=== PATIENT | female | born 1990 | race Caucasian/White ===

== ENCOUNTER 2016-08-19 13:54 | Observation (INO) ==
[2016-08-19] MEDS ORDERED: ONDANSETRON 4 MG/2 ML INJECTION IVP PRN (14:52)
[2016-08-19] MEDS ORDERED: DimenhyDRINATE 50 MG in LR 1,000 ML IV SCH ×2 (15:00→16:00)
[2016-08-19] MEDS ORDERED: D5LR 1,000 ML IV SCH (16:00)
--- NOTE | 2016-08-19 18:23 | OB/GYN Progress Note ---
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 The WU is resolved, and her neck is feeling much better. Good FM now. She's been able to keep down crackers. She voided. No diarrhea. - Objective Vital signs: Temp Pulse Resp BP Pulse Ox 96.6 F L 89 18 122/63 96 08/19/16 15:00 08/19/16 15:00 08/19/16 15:00 08/19/16 15:00 08/19/16 15:00 General: alert and oriented Laboratory Result: 08/19/16 15:28 08/19/16 15:28 - Assessment and Plan (1) 20 weeks gestation of Assessment and Plan: 20 (2) Hyperemesis affecting , antepartum Assessment and Plan: If she can keep down some food this evening, then we'll let her go home after the second bag of fluids is infused. (3) Heartburn during in second trimester Assessment and Plan: Add Pepcid.
[2016-08-19] MEDS ORDERED: FAMOTIDINE 40 MG/5 ML ORAL LIQUID PO SCH (18:30)
== END 2016-08-19 21:10 | disposition home or self-care (01) ==
LOC: MED
PROVIDERS: ADMIT Obstetrics & Gynecology; ATTEND Obstetrics & Gynecology

== ENCOUNTER 2016-12-25 10:18 | Inpatient (IN) ==
[2016-12-25] MEDS ORDERED: FAMOTIDINE PB 20 MG/50 ML BAG IV ONE (10:30)
[2016-12-25] MEDS ORDERED: CITRIC ACID/SODIUM CITRATE 30ml PO ONE (10:30)
--- OUTSIDE RECORDS SUMMARY | 2016-12-25 10:30 | External Medical Summary | Continuity of Care Document ---
:1990 Author Organization [facility] Address [address] [place], [place] [id number] Phone Care Team Providers Name Role Phone Aditya English PA-C Unavailable Unavailable Allergies, Adverse Reactions, Alerts Substance Reaction Severity Status No Known Drug Allergies Unknown Active Medications Medication Instructions Dosage Effective Dates Status Comments (start - stop) Vitamin take 1 tablet by Not Available - Active 27 mg-0.8 mg oral route every tablet day Tylenol 325 mg take 1 tablet by - Active tablet oral route every 4 hours as needed Problems Condition Effective Dates (start - stop) Clinical Status state, incidental - Less than 8 weeks gestation of - Previous Low Transverse - Encounter for suprvsn of normal - , second trimester 19 weeks gestation of - Mild hyperemesis gravidarum - 20 weeks gestation of - Previous Low Transverse - Maternal care for excess growth, - second tri, unsp 27 weeks gestation of - Previous Low Transverse - Obesity complicating , first - trimester 12 weeks gestation of - Previous Low Transverse - Maternal care for excess growth, - second tri, unsp Obesity complicating , second - trimester 19 weeks gestation of - Previous Low Transverse - Obesity complicating , second - trimester Encounter for suprvsn of normal - , second trimester 27 weeks gestation of - Previous Low Transverse - Smoking (tobacco) complicating - , first trimester Obesity complicating , first - trimester 10 weeks gestation of - Previous Low Transverse - Placenta previa specified as w/o - hemorrhage, first trimester Encounter for suprvsn of normal - , first trimester 12 weeks gestation of - Maternal care for excess growth, - second tri, unsp 17 weeks gestation of - Previous Low Transverse - Maternal care for excess growth, - second tri, unsp 24 weeks gestation of - Previous Low Transverse - 29 weeks gestation of - Previous Low Transverse - 31 weeks gestation of - Previous Low Transverse - Obesity complicating , third - trimester Encounter for suprvsn of normal - , third trimester 32 weeks gestation of - state, incidental - 8 weeks gestation of - Encounter for suprvsn of normal - , first trimester 8 weeks gestation of - Encntr screen for infections w sexl - mode of transmiss Placenta previa specified as w/o - hemor, second trimester 15 weeks gestation of - Abnormal glucose complicating - Maternal care for excess growth, - third trimester, unsp Decreased movements, third - trimester, unsp 33 weeks gestation of - Initiation of Oral Contraceptives - Active Procedures Procedure Date Unknown Results Test Name Date and Time Measure Units Reference Range Abnormal Flag Comments Unknown Advance Directives Directive Yes / No Effective Date File Name Unknown Encounters Encounter Practice Location Reason(s) Diagnoses Date Provider Care Team Description For Visit Members Cheng Cano Maternal care for Aug-2 Flowers Referring In Womens excess 9-201 [place]. Provider: Nita ANSARI, growth, third 7 700 [place] Flowers PO Box trimester, Medical , 700 1522, unspDecreased [place], movements, , [facility] Dr GUZMAN, third trimester, 120, Adarsh 120, [id number], unsp33 weeks Jerome Cano, gestation of [place], [place], tel: [phone]. , [place]. tel: tel: [phone] Cheng Cano Previous Low Aug-2 Flwoers Referring In Womens Transverse 1-201 [place]. Provider: Nita ANSARI, C-SectionObesity 7 700 [place] Flowers PO Box complicating Medical , 700 1522, , [facility] Beena, trimesterEncounte Dr, [facility] Dr GUZMAN, r for suprvsn of 120, Adarsh 120, [id number], normal , Jerome [facility] third [id number] THOMAS GUZMAN, tel: weeks gestation [phone]. of , [place]. tel: tel: [phone] Cheng Cano Aug-2 Flowers In Womens 1-201 [place]. Nita ANSARI, 7 700 PO Box Medical [address], [place] [address] [place], [facility] THOMAS, 120, [id number], [place], [place], tel: [phone] , [place]. tel: [phone] Cheng Cano Previous Low Aug-1 Flowers Referring In Womens Transverse 5-201 [place]. Provider: Nita ANSARI, [id number] weeks 7 700 [place] Flowers PO Box gestation of Medical K, 700 1522, [address], [facility] Dr GUZMAN, 120, Adarsh 120, [id number], Jerome [place]o, [place] GUZMAN, tel: [phone]. , [place]. tel: tel: [phone] [facility] Previous Low Aug-0 Flowers Referring In Womens Transverse - [place]. Provider: Nita ANSARI, [id number] weeks 7 700 [place] Flowers PO Box gestation of Medical K, 1522, [address], [facility] Dr GUZMAN, 120, Adarsh 120, , Jerome [place]o, [place] GUZMAN, tel:[phone]. , [place]. tel: tel: [phone] [facility] Abnormal glucose Sep-2 Flowers Referring In Womens complicating - Oriana. Provider: Nita ANSARI, 7 [place] Flowers PO Box Medical K, 152, [place] [address], [facility] Dr GUZMAN, 120, Adarsh 120, , Jerome [place]o, [place] GUZMAN, tel:[phone]. , [place]. tel: tel: [phone] [facility] Previous Low Sep-1 Flowers Referring In Womens Transverse - Oriana. Provider: Nita ANSARI, C-SectionObesity 7 [place] Flowers PO Box complicating Medical K, 152, , second [place], trimesterEncounte , [facility] Dr GUZMAN, r for suprvsn of 120, Adarsh 120, [id number], normal , Jerome Cano, second THOMAS GUZMAN, tel: [id number] weeks [phone]. gestation of , [place]. tel: tel: [phone] [facility] Previous Low Sep-1 Flowers Referring In Womens Ultrasound Transverse - Oriana. Provider: Nita ANSARI, C-SectionMaternal 7 700 [place] Flowers PO Box care for excess Medical K, 152, growth, [place], [facility] Dr adelso, [facility] Dr GUZMAN, unsp27 weeks 120, Adarsh 120, [id number], gestation of Jerome [place], [place] GUZMAN, tel:[phone]. , [place]. tel: tel: [phone] [facility] Previous Low Matthew-2 Flowers Referring In Womens Transverse 8-201 [place]. Provider: Nita ANSARI, C-SectionMaternal 7 700 [place] Flowers PO Box care for excess Medical K, 700 1522, growth, [place] [address], [facility] Dr GUZMAN, unsp24 weeks 120, Adarsh 120, [id number], gestation of Jerome [place], [place], [place], tel: [phone]. , [place]. tel: tel: [phone] [facility] Mild hyperemesis Matthew-0 Flowers Referring In Womens [id number] 6-201 Ori[place]. Provider: Nita ANSARI, weeks gestation 7 700 [place] Flowers PO Box of Medical K, 700 1522, [place] [address], [facility] Dr GUZMAN, 120, Adarsh 120, [id number], Jerome [place], [place] GUZMAN, tel: [phone]. , [place]. tel: tel: [phone] [facility] Previous Low May-3 Flowers Referring In Womens Transverse 1-201 [place]. Provider: Nita ANSARI, C-SectionEncounte 7 700 [place] Flowers PO Box r for suprvsn of Medical K, 700 1522, normal , [place] [address], [facility] Dr GUZMAN, [id number] weeks 120, Adarsh 120, [id number], gestation of Jerome [place], [place] THOMAS, TH[place], tel: [phone]. , [place]. tel: tel: [phone] [facility] Previous Low May-3 Flowers Referring In Womens Ultrasound Transverse 1-201 [place]. Provider: Nita ANSAIR, C-SectionMaternal 7 700 [place] Flowers PO Box care for excess Medical K, 700 1522, growth, [place] [address], [facility] Dr GUZMAN, unspObesity 120, Adarsh 120, [id number], complicating Jerome Cnao, , second THOMAS, THOMAS, tel: [id number] weeks [phone]. gestation of , [place]. tel: tel: [phone] [facility] Maternal care for May-1 Flowers Referring In Womens excess 6-201 [place]. Provider: Nita ANSARI, growth, second 7 700 Oriana Flowers PO Box tri, unsp17 weeks Medical , 700 1522, gestation of [facility], Dr, [facility] Dr GUZMAN, 120, Adarsh 120, [id number], Jerome [place], [place], [place], tel:[phone]. , [place]. tel: tel: [phone] [facility] Encntr screen for May-0 Flowers Referring In Womens infections w sexl 4-201 [place]. Provider: Nita ANSARI, mode of 7 700 [place] Flowers PO Box transmissPlacenta Medical , 700 1522, previa specified [facility], as w/o Dr miguel, [facility] Dr GUZMAN, second 120, Adarsh 120, [id number], [id number] weeks Jerome Cano, gestation of THOMAS TH[place], tel: [phone]. , [place]. tel: tel: [phone] [facility] Previous Low Apr-1 Flowers Referring In Womens Transverse 7-201 [place]. Provider: Nita ANSARI, C-SectionPlacenta 7 700 [place] Flowers PO Box previa specified [facility], 700 1522, as w/o [facility], hemorrhage, first , [facility] Dr GUZMAN, trimesterEncounte 120, Adarsh 120, , r for suprvsn of Jerome Cano, normal , THOMAS GUZMAN, tel: first [id number] [phone]. weeks gestation , [place]. tel: of tel: [phone] [facility] Previous Low Apr-1 Flowers Referring In Womens Ultrasound Transverse 7-201 Ori[place]. Provider: Nita ANSARI, C-SectionObesity 7 700 [place] Flowers PO Box complicating Medical , 700 1522, , first [facility] [place], [id number] weeks , [facility] Dr GUZMAN, gestation of 120, Adarsh 120, , Jerome [place], [place], TH[place], tel: [phone]. , [place]. tel: tel: [phone] Cheng Cano Previous Low Mar-2 Flowers Referring In Womens Transverse 9-201 [place]. Provider: Nita ANSARI, C-SectionSmoking 7 700 [place] Flowers PO Box (tobacco) Medical , 700 1522, complicating [facility] [place], , first , [facility] Dr GUZMAN, trimesterObesity 120, Adarsh 120, , complicating Jerome [place], [place] , first THOMAS GUZMAN, tel: [id number] weeks [phone]. gestation of , [place]. tel: tel: [phone] Cheng Cano Encounter for Mar-0 Flowers Referring In Womens suprvsn of normal 8-201 Ori[place]. Provider: Nita ANSARI, , first 7 700 Oriana Flowers PO Box trimester8 weeks Medical , 700 1522, gestation of [facility] [place], , [facility] Dr GUZMAN, 120, Adarsh 120, , Jerome [place], [place] GUZMAN, tel: [phone]. , [place]. tel: tel: [phone] Cheng Cano state, Mar-0 Flowers Referring In Womens Ultrasound incidental8 weeks 8-201 Ori[place]. Provider: Nita ANSARI, gestation of 7 700 Ori[place] Flowers PO Box Medical K, 700 1522, [place], , [facility] Dr GUZMAN, 120, Adarsh 120, , Jerome [place], [place]OM[place], THOM[place], tel: [phone]. , [place]. tel: tel: [phone] Cheng Cano state, May- Flowers Referring In Womens incidentalLess 1-201 [place]. Provider: Nita ANSARI, carlie 8 weeks 7 700 Ori[place] Flowers PO Box gestation of Medical K, 700 1522, Center Medical Dr Be[place], [facility] Dr GUZMAN, 120, Adarsh 120, [id number], [facility] [place], tel: [phone]. , [place]. tel: tel: [phone] Cheng Cano Flowers In Womens 6-201 Ori[place]. Health ELAN, 4 700 PO Box Medical 1522, [place] [address] [place], [facility] THOMAS, 120, [id number], [facility], tel: [phone] , . tel: [phone] Family History Family Member Diagnosis Age At Onset No family history of Lung Disease No family history of Uterine Cancer No family history of Kidney Problems No family history of Colon Cancer No family history of Diabetes No family history of Epilepsy No family history of Thrombosis Maternal grandmother Multiple sclerosis No family history of Hypertension No family history of Breast Cancer No family history of Stroke No family history of Osteoporosis No family history of Ovarian Cancer No family history of Thyroid Disorder Mother Congenital Cardiac Anomaly Immunizations Vaccine Date Status Comments Tdap completed Source: New Immunization Record Payers Payer name Insurance type Covered democrat ID Authorization(s) [facility] [id number] [employer] - Medicaid [place] [id number] [facility] [id number] [employer] [place] Medicaid [place] [id number] [facility] [id number] [employer] - Medicaid [place] [id number] Social History Type Description Quantity Date Captured Unknown Vital Signs Date / Height Weight BMI Pulse Blood Temperature Respiratory Body Head BMI Time: Rate Pressure Rate Surface Circumference percentile Area Unknown Chief Complaint And Reason For Visit Unknown Chief Complaint And Reason For Visit Reason For Referral Reason For Referral Unknown Plan Of Care Date Type Action Status Goal Tobacco cessation counseling completed Appointment Leni Nugent BOOKED Appointment Leni Nugent - [facility] - RC/S, PPTL BOOKED Future Order: Radiology Order Ultrasound OB Follow-up (83050) Ordered Future Order: Radiology Order Nuchal Translucency ([id number]) Ordered Future Order: Radiology Order Complete OB Ultrasound > 14 Ordered Weeks ([id number]) Future Order: Radiology Order Ultrasound < 14 wks ([id number]) Ordered Date Type Problem Goal Intervention Status Start Date Unknown. History Of Present Illness Encounter Date Complaint History Of Present Illness This patient has no known history of present illness Functional Status Encounter Date Functional Assessment Cognitive Assessment Unknown Medications Administered Medication Instructions Dosage Effective Dates (start - stop) Status Comments Drug Treatment Unknown Instructions Date Instruction Additional Information HIV and other routine tests risk factors identified by history anticipated course of care nutrition and weight gain counseling, special diet toxoplasmosis precautions (cats / raw meat) sexual activity exercise indications for ultrasound influenza vaccine environmental / work hazards travel childbirth classes / hospital facilities hospital registration genetic testing risks tobacco (ask, advise, assess, assist and arrange) alcohol illicit / recreational drugs use of any medications (including supplements, vitamins, herbs, OTC drugs) smoking counseling domestic violence seat belt use
--- OUTSIDE RECORDS SUMMARY | 2016-12-25 10:31 | External Medical Summary | Continuity of Care Document ---
:1990 Author Organization [facility] Address [address] [place], [place] [id number] Phone Care Team Providers Name Role Phone [...] Effective Dates (start - stop) Clinical Status Previous Low Transverse - Maternal care for excess growth, - third trimester, unsp 35 weeks gestation of - Less than 8 weeks gestation of - state, incidental - Previous Low Transverse - Encounter for suprvsn of normal - , second trimester 19 weeks gestation of - Mild hyperemesis gravidarum - 20 weeks gestation of - Oth related conditions, - third trimester Previous Low Transverse - 35 weeks gestation of - Previous Low Transverse - Maternal care for excess growth, - second tri, unsp 27 weeks gestation of - Previous Low Transverse - 12 weeks gestation of - Obesity complicating , first - trimester Previous Low Transverse - Maternal care for excess growth, - second tri, unsp 19 weeks gestation of - Obesity complicating , second - trimester Previous Low Transverse - Obesity complicating , second - trimester Encounter for suprvsn of normal - , second trimester 27 weeks gestation of - Previous Low Transverse - Obesity complicating , first - trimester 10 weeks gestation of - Smoking (tobacco) complicating - , first trimester Previous Low Transverse - 12 weeks gestation of - Placenta previa specified as w/o - hemorrhage, first trimester Encounter for suprvsn of normal - , first trimester Previous Low Transverse - Maternal care for excess growth, - second tri, unsp 24 weeks gestation of - Previous Low Transverse - 32 weeks gestation of - Encounter for suprvsn of normal - , third trimester Obesity complicating , third - trimester Previous Low Transverse - 31 weeks gestation of - Previous Low Transverse - Encounter for suprvsn of normal - , third trimester 37 weeks gestation of - Previous Low Transverse - 29 weeks gestation of - Previous Low Transverse - 36 weeks gestation of - Previous Low Transverse - Encounter for suprvsn of normal - , third trimester 38 weeks gestation of - Maternal care for excess growth, - second tri, unsp 17 weeks gestation of - Maternal care for excess growth, - third trimester, unsp Decreased movements, third - trimester, unsp 33 weeks gestation of - 8 weeks gestation of - state, incidental - 8 weeks gestation of - Encounter for suprvsn of normal - , first trimester Encntr screen for infections w sexl - mode of transmiss Placenta previa specified as w/o - hemor, second trimester 15 weeks gestation of - Abnormal glucose complicating - Initiation of Oral Contraceptives - Active Procedures Procedure Date Ultrasnd preg uterus, flwup/repeat Results Test Name Date and Time Measure Units Reference Range Abnormal Flag Comments Unknown Advance Directives Directive Yes / No Effective Date File Name Unknown Encounters Encounter Practice Location Reason(s) Diagnoses Date Provider Care Team Description For Visit Members Cheng Cano Previous Low Dec-0 Flowers Referring In Womens Transverse 5-201 Oriana. Provider: Nita ANSARI C-SectionEncounte 7 700 Oriana Flowers PO Box r for [facility] 1522, normal , [facility], third [id number] , [facility] Dr GUZMAN, weeks gestation 120, Adarsh 120, , of [facility], [facility], [place], tel: [phone]. , [place]. tel: tel: [phone] Cheng Cano Previous Low Sep- Flowers Referring In Womens Transverse 8-201 Oriana. Provider: Nita ANSARI C-SectionEncounte 7 700 Oriana Flowers PO Box r for suprvsn [facility], 700 1522, normal , [facility], third [id number] , [facility] Dr GUZMAN, weeks gestation 120, Adarsh 120, [id number], of [facility], [facility], [place], tel: [phone]. , [place]. tel: tel: [phone] Cheng Cano Previous Low Sep-2 Flowers Referring In Womens Transverse 1-201 Oriaan. Provider: Nita ANSARI, C-[id number] weeks 7 700 Oriana Flowers PO Box gestation of Medical K, 700 1522, [facility] [place], , [facility] Dr GUZMAN, 120, Adarsh 120, [id number], [place], [place], [place], tel: [phone]. , [place]. tel: tel: [phone] Cheng Cano [facility] Sep-1 Flowers Referring In Womens related 4-201 Oriana. Provider: Nita ANSARI, conditions, third 7 700 Oriana Flowers PO Box trimesterPrevious Medical K, 700 1522, [facility] C-[id number] weeks , [facility] Dr GUZMAN, gestation of 120, Adarsh 120, , [place], [place], [place], tel:[phone]. , [place]. tel: tel: [phone] Cheng Cano Previous Low Sep-1 Flowers Referring In Womens Ultrasound Transverse 4- Orinaa. Provider: Nita ANSARI, C-SectionMaternal 7 700 Oriana Flowers PO Box care for excess Medical K, 700 1522, growth, [place], third trimester, , [facility] Dr GUZMAN, unsp35 weeks 120, Adarsh 120, [id number], gestation of [place], [place], [place], tel: [phone]. , [place]. tel: tel: [phone] Cheng Cano Maternal care for Aug-2 Flowers Referring In Womens excess 9-201 Oriana. Provider: Nita ANSARI, growth, third 7 700 Oriana Flowers PO Box trimester, Medical K, 700 1522, unspDecreased Center [facility], movements, , [facility] Dr GUZMAN, third trimester, 120, Adarsh 120, [id number], unsp33 weeks [place], gestation of [place], [place], tel: [phone]. , [place]. tel: tel: [phone] [facility] [place] Previous Low Aug-2 Flowers Referring In Womens Transverse - Oriana. Provider: Nita ANSARI, C-Elwpfao56 weeks 7 700 Oriana Flowers PO Box gestation of Medical , 700 1522, pregnancyEncounte Center [facility], r for suprvsn of , [facility] Dr GUZMAN, normal , 120, Adarsh 120, , third [place], trimesterObesity [place]OMAS, [place]OMAS, tel:+ complicating [phone]. , third , [place]. tel: trimester tel: [phone] [facility] [place] Previous Low Aug-1 Flowers Referring In Womens Transverse 5- Oriana. Provider: Nita ANSARI, C-[id number] weeks 7 700 Oriana Flowers PO Box gestation of Medical , 700 1522, [facility] [place], [facility] Dr GUZMAN, 120, Adarsh 120, [id number], [place], [place], [place], tel: [phone]. , [place]. tel: tel: [phone] [facility] [place] Previous Low Aug-0 Flowers Referring In Womens Transverse - Oriana. Provider: Nita ANSARI, C-Yciajzx31 weeks 7 700 Oriana Flowers PO Box gestation of Medical , 700 1522, [facility] [place], [facility] Dr GUZMAN, 120, Adarsh 120, [id number], [place], [place], [place], tel: [phone]. , [place]. tel: tel: [phone] [facility] [place] Abnormal glucose Eitan-2 Flowers Referring In Womens complicating - Oriana. Provider: Nita ANSARI, 7 700 Oriana Flowers PO Box Medical , 700 1522, [facility], [facility] Dr GUZMAN, 120, Adarsh 120, [id number], [place], [place], [place], tel:[phone]. , [place]. tel: tel: [phone] [facility] [place] Previous Low Eitan-1 Flowers Referring In Womens Transverse 7-201 Oriana. Provider: Nita ANSARI, C-SectionObesity 7 700 Oriana Flowers PO Box complicating Medical K, 700 1522, , [facility] [place], trimesterEncounte , [facility] Dr GUZMAN, r for suprvsn of 120, Adarsh 120, [id number], normal , [place], [place] second [place] GUZMAN, tel: tipigysmk10 weeks [phone]. gestation of , [place]. tel: tel: [phone] [facility] [place] Previous Low Eitan-1 Flowers Referring In Womens Ultrasound Transverse 7-201 Oriana. Provider: Nita ANSARI, C-SectionMaternal 7 700 Oriana Flowers PO Box care for excess Medical K, 700 1522, growth, [place], [facility] Dr adelso, [facility] Dr GUZMAN, unsp27 weeks 120, Adarsh 120, [id number], gestation of [place], [place], [place], tel: [phone]. , [place]. tel: tel: [phone] [facility] [place] Previous Low Matthew-2 Flowers Referring In Womens Transverse 8-201 Oriana. Provider: Nita ANSARI, C-SectionMaternal 7 700 Oriana Flowers PO Box care for excess Medical K, 700 1522, growth, [place], [facility] Dr ad[place]so, [facility] Dr GUZMAN, unsp24 weeks 120, Adarsh 120, [id number], gestation of [place], [place], [place], tel: [phone]. , [place]. tel: tel: [phone] [facility] [place] Mild hyperemesis Matthew-0 Flowers Referring In Womens [id number] 6-201 Oriana. Provider: Nita ANSARI, weeks gestation 7 700 Oriana Flowers PO Box of Medical K, 700 1522, [place] [address], [facility] Dr GUZMAN, 120, Adarsh 120, [id number], [place], [place], [place], tel: [phone]. , [place]. tel: tel: [phone] [facility] [place] Previous Low May-3 Flowers Referring In Womens Transverse 1-201 Oriana. Provider: Nita ANSARI, C-SectionEncounte 7 700 Oriana Flowers PO Box r for suprvsn of Medical K, 700 1522, normal , [facility] , [facility] Dr GUZMAN, [id number] weeks 120, Adarsh 120, [id number], gestation of [place], [place], [place], tel: [phone]. , [place]. tel: tel: [phone] [facility] [place] Previous Low May-3 Flowers Referring In Womens Ultrasound Transverse 1-201 Oriana. Provider: Nita ANSARI, C-SectionMaternal 7 700 Oriana Flowers PO Box care for excess Medical K, 700 1522, growth, [facility], [facility] [place], , [facility] Dr GUZMAN, unsp19 weeks 120, Adarsh 120, [id number], gestation of [place], pregnancyObesity [place]OMAS, [place], tel: complicating [phone]. , second , [place]. tel: trimester tel: [phone] [facility] [place] Maternal care for July-1 Flowers Referring In Womens excess 6-201 Oriana. Provider: Nita ANSARI, growth, second 7 700 Oriana Flowers PO Box tri, unsp17 weeks Medical K, 700 1522, gestation of [facility], Dr, [facility] Dr GUZMAN, 120, Adarsh 120, [id number], [place], [place], [place], tel: [phone]. , [place]. tel: tel: [phone] [facility] [place] Encntr screen for May-0 Flowers Referring In Womens infections w sexl 4-201 Oriana. Provider: Ntia ANSARI, mode of 7 700 Oriana Flowers PO Box transmissPlacenta Medical , 700 1522, previa specified [facility], as w/o Dr miguel, [facility] Dr GUZMAN, second 120, Adarsh 120, [id number], [id number] weeks [place], gestation of [place], [place], tel: [phone]. , [place]. tel: tel: [phone] [facility] [place] Previous Low Apr-1 Flowers Referring In Womens Transverse 7-201 Oriana. Provider: Nita ANSARI, C-Rvwvjeo66 weeks 7 700 Oriana Flowers PO Box gestation of Medical , 700 1522, pregnancyPlacenta [facility], previa specified , [facility] Dr GUZMAN, as w/o 120, Adarsh 120, [id number], hemorrhage, first [place], [place] trimesterEncounte [place] GUZMAN, tel: r for suprvsn of [phone]. normal , , [place]. tel: first trimester tel: [phone] Cheng Cano Previous Low Apr-1 Flowers Referring In Womens Ultrasound Transverse 7-201 Oriana. Provider: Nita ANSARI, C-Oepkzwq20 weeks 7 700 Oriana Flowers PO Box gestation of Medical K, 700 1522, pregnancyObesity [facility], complicating , [facility] Dr GUZMAN, , first 120, Adarsh 120, , trimester [place], [place] GUZMAN, tel: [phone]. , [place]. tel: tel: [phone] Cheng Cano Previous Low Mar-2 Flowers Referring In Womens Transverse 9-201 Oriana. Provider: Nita ANSARI, C-SectionObesity 7 700 Oriana Flowers PO Box complicating Medical , 700 1522, , first [facility], [id number] weeks , [facility] Dr GUZMAN, gestation of 120, Adarsh 120, [id number], pregnancySmoking [place], [place] (tobacco) [place] GUZMAN, tel: complicating [phone]. , first , [place]. tel: trimester tel: [phone] Cheng Cano 8 weeks gestation Mar-0 Flowers Referring In Womens of 8- Oriana. Provider: Nita ANSARI pregnancyEncounte 7 700 Oriana Flowers PO Box r for [facility] Medical K, 700 1522, normal , [place], first trimester , [facility] [place], 120, Adarsh 120, [id number], [place], [place], [place], tel: [phone]. , [place]. tel: tel: [phone] Cheng Cano 8 weeks gestation Mar-0 Flowers Referring In Womens Ultrasound of 8- Oriana. Provider: Nita ANSARI, pregnancy 7 700 Oriana Flowers PO Box [facility], [facility] Medical K, 700 1522, [place] [address], [facility] [place], 120, Adarsh 120, [id number], [place], [place], [place], tel: [phone]. , [place]. tel: tel: [phone] Cheng Cano Less than 8 weeks Mar-0 Flowers Referring In Womens gestation of 1-201 Oriana. Provider: Nita ANSARI pregnancy 7 700 Oriana Flowers PO Box [facility], [facility] Medical K, 700 1522, [place] [address], [facility] Dr GUZMAN, 120, Adarsh 120, [id number], [place], [place], [place], tel: [phone]. , [place]. tel: tel: [phone] Cheng Cano Mar- Flowers In Womens 6-201 Oriana. Nita ANSARI, 4 700 [facility] 1522, [place] [address] [place], Adarsh GUZMAN, 120, [id number], [place], [place], tel: [phone] , [place]. tel: [phone] Family History Family Member Diagnosis Age At [...] Cardiac Anomaly Immunizations Vaccine Date Status Comments Influenza, injectable, completed Source: New Immunization Record quadrivalent, preservative free, 3 yrs or older Tdap completed Source: New Immunization Record Payers Payer name Insurance type Covered constitution party ID Authorization(s) [facility] [id number] [employer] [place] [employer] - Medicaid [place] [id number] [facility] [id number] [employer] [place] [employer] [place] Medicaid [place] [id number] [facility] [id number] [employer] [place] [employer] - Medicaid [place] [id number] [facility] [id number] [employer] - Medicaid [place] [id number] Social History Type Description Quantity Date Captured [...] Goal Tobacco cessation counseling completed Appointment Leni Nugent/S, PPTL BOOKED Future Order: Radiology Order Ultrasound OB Follow-up ([id number]) Ordered Future Order: Radiology Order Ultrasound OB Follow-up ([id number]) Ordered Future Order: Radiology Order Nuchal Translucency ([id number]) Ordered Future Order: Radiology Order Complete OB Ultrasound > 14 Ordered Weeks ([id number]) Future Order: Radiology Order Ultrasound < 14 wks ([id number]) Ordered Date Type Problem Goal Intervention Status Start Date Unknown. History Of Present Illness Encounter Date Complaint History Of Present Illness This patient has no known history of present illness Functional Status Encounter Date Functional Assessment Cognitive Assessment Unknown Medications Administered Medication Instructions Dosage Effective Dates (start - stop) Status Comments Drug Treatment Unknown Instructions Date Instruction Additional Information labor signs group B strep screening HIV and other routine tests risk factors [...]
--- OUTSIDE RECORDS SUMMARY | 2016-12-25 10:31 | External Medical Summary | Continuity of Care Document ---
:1990 Author Organization [facility] Address [address] [place], [place] [id number] Phone Care Team Providers Name Role Phone [...] tri, unsp 27 weeks gestation of - state, incidental - Less than 8 weeks [...] - Obesity complicating , first - trimester Smoking (tobacco) complicating - , first trimester 10 weeks gestation of - Previous Low Transverse - Placenta previa specified as w/o - hemorrhage, first trimester 12 weeks gestation of - Encounter for suprvsn of normal - , first trimester Previous Low Transverse - Maternal care for excess growth, - second tri, unsp 24 weeks gestation of - Previous Low Transverse - 29 weeks gestation of - Maternal care for excess growth, - second tri, unsp 17 weeks gestation of - Placenta previa specified as w/o - hemor, second trimester Encntr screen for infections w sexl - mode of transmiss 15 weeks gestation of - 8 weeks gestation of - state, incidental - 8 weeks gestation of - Encounter for suprvsn of normal - , first trimester Abnormal glucose complicating - Initiation of Oral Contraceptives - Active Procedures Procedure Date Ultrasnd preg uterus, flwup/repeat Results Test Name Date and Time Measure Units Reference Range Abnormal Flag Comments Unknown Advance Directives Directive Yes / No Effective Date File Name Unknown Encounters Encounter Practice Location Reason(s) Diagnoses Date Provider Care Team Description For Visit Members [facility] Previous Low Flowers Referring In Womens Transverse 1-201 Oriana. Provider: Health PA, [id number]-[id number] weeks 7 700 Oriana Flowers PO Box gestation of Medical K, 700 1522, [address], [facility] [address] [place], 120, [place] 120, [id number], [place], [place], [place], tel: [phone]. , [place]. tel: tel: [phone] [facility] Abnormal glucose Eitan-2 Flowers Referring In Womens complicating 1-201 Oriana. Provider: Nita ANSARI, 7 700 Oriana Flowers PO Box Medical K, 700 1522, [place] [address], [facility] Dr GUZMAN, 120, Ad[place] 120, [id number], [place], [place], tel: [phone]. , [place]. tel: tel: [phone] [facility] Previous Low Eitan-1 Flowers Referring In Womens Transverse 7-201 Oriana. Provider: Nita ANSARI, C-SectionObesity 7 700 Oriana Flowers PO Box complicating Medical K, 700 1522, , [facility] [address], trimesterEncounte , [facility] Dr GUZMAN, r for suprvsn of 120, Adarsh 120, [id number], normal , [place] Cano, [place] second [place] GUZMAN, tel: [id number] weeks [phone]. gestation of , [place]. tel: tel: [phone] [facility] Previous Low Eitan-1 Flowers Referring In Womens Ultrasound Transverse 7- Oriana. Provider: Nita ANSARI, C-SectionMaternal 7 700 Oriana Flowers PO Box care for excess Medical K, 700 1522, growth, [place] [address], [facility] Dr GUZMAN, unsp27 weeks 120, Adarsh 120, [id number], gestation of Jerome Cano, [place]OMAS, THOM[place], tel: [phone]. , [place]. tel: tel: [phone] [facility] Previous Low Matthew-2 Flowers Referring In Womens Transverse 8-201 Oriana. Provider: Nita ANSARI, C-SectionMaternal 7 700 Oriana Flowers PO Box care for excess Medical K, 700 1522, growth, [place] [address], second Dr adelso, [facility] Dr GUZMAN, unsp24 weeks 120, Adarsh 120, [id number], gestation of [place] Cano, [place], tel: [phone]. , [place]. tel: tel: [phone] [facility] Mild hyperemesis Matthew-0 Flowers Referring In Womens [id number] 6-201 Oriana. Provider: Nita ANSARI, weeks gestation 7 700 Oriana Flowers PO Box of Medical K, 700 1522, [place] [address], [facility] Dr GUZMAN, 120, Adarsh 120, [id number], [place] Cano, [place] GUZMAN, tel:[phone]. , [place]. tel: tel: [phone] [facility] Previous Low July-3 Flowers Referring In Womens Transverse 1-201 Oriana. Provider: Nita ANSARI, C-SectionEncounte 7 700 Oriana Flowers PO Box r for suprvsn of Medical K, 700 1522, normal , [facility] [place], [facility] , [facility] Dr GUZMAN, [id number] weeks 120, Adarsh 120, [id number], gestation of [place] Cano, [place], tel: [phone]. , [place]. tel: tel: [phone] [facility] Previous Low July-3 Flowers Referring In Womens Ultrasound Transverse 1- Oriana. Provider: Nita ANSARI, C-SectionMaternal 7 700 Oriana Flowers PO Box care for excess Medical K, 700 1522, growth, [place] [address], [facility] Dr adelso, [facility] Dr GUZMAN, unspObesity 120, Adarsh 120, [id number], complicating Jerome Cano, [place] , second [place] GUZMAN, tel: [id number] weeks [phone]. gestation of , [place]. tel: tel: [phone] [facility] Maternal care for July-1 Flowers Referring In Womens excess 6-201 Oriana. Provider: Nita ANSARI, growth, second 7 700 Oriana Flowers PO Box tri, unsp17 weeks Medical , 700 152, gestation of [facility], , [facility] Dr GUZMAN, 120, Adarsh 120, , [place] Cano, [place], tel: [phone]. , [place]. tel: tel: [phone] [facility] Placenta previa May-0 Flowers Referring In Womens specified as w/o 4-201 Oriana. Provider: Nita ANSARI, ashleeor, second 7 700 Oriana Flowers PO Box trimesterEncntr [facility], 700 152, screen for [facility], infections w sexl , [facility] Dr GUZMAN, mode of 120, Adarsh 120, [id number], deaorrhll96 weeks [place], gestation of [place], [place], tel: [phone]. , [place]. tel: tel: [phone] [facility] Previous Low Apr-1 Flowers Referring In Womens Transverse 7-201 Oriana. Provider: Nita ANSARI, C-SectionPlacenta 7 700 Oriana Flowers PO Box previa specified Medical , 152, as w/o [facility], hemorrhage, first , [facility] Dr GUZMAN, [id number] weeks 120, Adarsh 120, , gestation of [place] Cano, pregnancyEncounte [place], tel: r for suprvsn of [phone]. normal , , [place]. tel: first trimester tel: [phone] [facility] Previous Low Apr-1 Flowers Referring In Womens Ultrasound Transverse 7-201 Oriana. Provider: Nita ANSARI, C-SectionObesity 7 700 Oriana Flowers PO Box complicating [facility], 700 152, , first [place] [address], [id number] weeks , [facility] Dr GUZMAN, gestation of 120, Adarsh 120, , [place] Cano, [place] GUZMAN, tel: [phone]. , [place]. tel: tel: [phone] [facility] Previous Low Mar-2 Flowers Referring In Womens Transverse 9-201 Oriana. Provider: Nita ANSARI, C-SectionObesity 7 700 Oriana Flowers PO Box complicating Medical , 1521, , first [place] [address], trimesterSmoking , [facility] Dr GUZMAN, (tobacco) 120, Adarsh 120, , complicating Jerome Cano, , first [place]OMAS GUZMAN, tel: weeks [phone]. gestation of , [place]. tel: tel: [phone] [facility] 8 weeks gestation Mar-0 Flowers Referring In Womens of 8-201 Oriana. Provider: Nita ANSARI, pregnancyEncounte 7 Oriana Flowers PO Box r for suprvsn of Medical , 152, normal , [place] [address], first trimester , [facility] Dr GUZMAN, 120, Adarsh 120, , [place] Cano, [place]OMAS, THOMAS, tel: [phone]. , [place]. tel: tel: [phone] [facility] 8 weeks gestation Mar-0 Flowers Referring In Womens Ultrasound of 8-201 Oriana. Provider: Nita ANSARI, pregnancy 7 700 Oriana Flowers PO Box state, incidental Medical , 152, [address], [facility] Dr GUZMAN, 120, Adarsh 120, , [place] Cano, [place] THOMAS, THOMAS, tel: [phone]. , [place]. tel: tel: [phone] [facility] state, Mar-0 Flowers Referring In Womens incidentalLess 1-201 Oriana. Provider: Nita ANSARI, than 8 weeks 7 700 Oriana Flowers PO Box gestation of Medical , 152, [address], [facility] Dr GUZMAN, 120, Adarsh 120, , [place] Cano, [place], tel: [phone]. , . tel: tel: [phone] Cheng Cano Flowers In Womens 6-201 Oriana. [place], 4 700 PO [facility] [address], [place] [address] [place], [place], 120, [id number], [facility], tel: [phone] , . tel: [phone] Family History Family Member Diagnosis Age At [...] Cardiac Anomaly Immunizations Vaccine Date Status Comments Unknown Payers Payer name Insurance type Covered democrat ID Authorization(s) [facility] [id number] [employer] - Medicaid [place] [id number] [facility] [id number] [employer] - Medicaid MC [id number] Social History Type Description Quantity Date Captured [...] Appointment Leni Nugent BOOKED Appointment Leni Nugent BOOKED Appointment Leni N[place] [facility] [place] Future Order: Radiology Order Ultrasound OB Follow-up ([id number]) Ordered Future Order: Radiology Order Nuchal Translucency ([id number]) Ordered Future Order: Radiology Order Complete OB Ultrasound > 14 Ordered Weeks ([id number]) Future Order: Radiology Order Ultrasound < 14 wks ([id number]) Ordered Date Type Problem Goal Intervention Status [...]
--- OUTSIDE RECORDS SUMMARY | 2016-12-25 10:31 | External Medical Summary | Continuity of Care Document ---
:1990 Author Organization [facility] Address [address] [place], [place] [id number] Phone Care Team Providers Name Role Phone [...] stop) Clinical Status Previous Low Transverse - 36 weeks gestation of - state, incidental - [...] third trimester 32 weeks gestation of - Previous Low Transverse - 31 weeks gestation of - Previous Low Transverse - 37 weeks gestation of - Encounter for suprvsn of normal - , third trimester Previous Low Transverse - Maternal care for excess growth, - third trimester, unsp 35 weeks gestation of - Previous Low [...] trimester, unsp 33 weeks gestation of - Placenta previa specified as w/o - hemor, second trimester 15 weeks gestation of - Encntr screen for infections w sexl - mode of transmiss 8 weeks gestation of - state, incidental - 8 weeks gestation of - Encounter for suprvsn of normal - , first trimester Abnormal glucose complicating - Initiation of Oral Contraceptives - Active Procedures Procedure Date OB Visit No Charge Results Test Name Date and Time Measure Units Reference Range Abnormal Flag Comments Unknown Advance Directives Directive Yes / No Effective Date File Name Unknown Encounters Encounter Practice Location Reason(s) Diagnoses Date Provider Care Team Description For Visit Members Cheng Cano Previous Low Dec-0 Flowers Referring In Womens Transverse 5-201 Oriana. Provider: Nita ANSARI, C-SectionEncounte 7 700 Oriana Flowers PO Box r for suprvsn of Medical Sissy, 700 1522, [facility] , [facility] third [id number] , [facility] Dr GUZMAN, weeks gestation 120, Ad[place] 120, , of [place] Cano, [place], [place], tel: [phone]. , [place]. tel: tel: [phone] Cheng Cano Previous Low Sep-2 Flowers Referring In Womens Transverse 8-201 Oriana. Provider: Nita ANSARI C-Vznpvsw54 weeks 7 700 Oriana Flowers PO Box gestation of Medical , 700 1522, [facility], r for suprvsn of , [facility] Dr UGZMAN, normal , 120, Adarsh 120, [id number], third trimester Jerome Cano, THOMAS, THOMAS, tel: [phone]. , [place]. tel: tel: [phone] Cheng Cano Previous Low Sep-2 Flowers Referring In Womens Transverse 1-201 Oriana. Provider: Nita ANSARI, C-Ivqzghi81 weeks 7 700 Oriana Flowers PO Box gestation of Medical K, 700 1522, [address], , [facility] Dr GUZMAN, 120, Ad[place] 120, [id number], Jerome Cano, THOMAS, THOMAS, tel:[phone]. , [place]. tel: tel: [phone] Cheng Cano Oth Sep-1 Flowers Referring In Womens related 4-201 Oriana. Provider: Nita ANSARI, conditions, third 7 700 Oriana Flowers PO Box trimesterPrevious Medical K, 700 1522, Low Transverse [facility] [place], C-[id number] weeks , [facility] Dr GUZMAN, gestation of 120, Adarsh 120, , Jerome Sipsey, THOMAS, THOMAS, tel:[phone]. , [place]. tel: tel: [phone] Cheng Cano Previous Low Sep-1 Flowers Referring In Womens Ultrasound Transverse 4- Oriana. Provider: Nita ANSARI, C-SectionMaternal 7 700 Oriana Flowers PO Box care for excess Medical K, 700 1522, growth, [place] [address], third trimester, Dr, [facility] Center Dr GUZMAN, unsp35 weeks 120, Adarsh 120, , gestation of [place] Cano, [place]OM[place], THOMAS, tel:[phone]. , [place]. tel: tel: [phone] Cheng Cano Maternal care for Aug-2 Flowers Referring In Womens excess 9-201 Oriana. Provider: Nita ANSARI, growth, third 7 700 Oriana Flowers PO Box trimester, Medical K, 700 1522, unspDecreased [address], movements, , [facility] Center Dr GUZMAN, third trimester, 120, Ad[place] 120, [id number], unsp33 weeks Jerome Cano, gestation of THOMAS GUZMAN, tel: [phone]. , [place]. tel: tel: [phone] [facility] Previous Low Aug-2 Flowers Referring In Womens Transverse - Oriana. Provider: Nita ANSARI, C-SectionObesity 7 700 Oriana Flowers PO Box complicating Medical , 1522, , third [address], trimesterEncountalvin Barros, [facility] Center Dr GUZMAN, r for suprvsn of 120, Adarhs 120, [id number], normal , Jerome Cano, third [id number] [place]OMAS GUZMAN, tel: weeks gestation [phone]. of , [place]. tel: tel: [phone] [facility] Previous Low Aug-1 Flowers Referring In Womens Transverse - Oriana. Provider: Nita ANSARI, C-[id number] weeks 7 700 Oriana Flowers PO Box gestation of Medical , 1522, [address], [facility] Dr GUZMAN, 120, Ad[place] 120, , Jerome Cano, THOMAS, THOMAS, tel: [phone]. , [place]. tel: tel: [phone] Cheng Cano Previous Low Aug-0 Flowers Referring In Womens Transverse - Oriana. Provider: Nita ANSARI, C-Gbqvtyo71 weeks 7 700 Oriana Flowers PO Box gestation of Medical , 1522, [address], [facility] Center Dr GUZMAN, 120, Ad[place] 120, , Jerome Cano, [place] GUZMAN, tel: [phone]. , [place]. tel: tel: [phone] [facility] Abnormal glucose Eitan-2 Flowers Referring In Womens complicating - Oriana. Provider: Nita ANSARI, 7 700 Oriana Flowers PO Box Medical , 1522, [address], [facility] Center Dr GUZMAN, 120, [place] 120, [id number], [place] Cano, [place] GUZMAN, tel:[phone]. , [place]. tel: tel: [phone] [facility] Previous Low Eitan-1 Flowers Referring In Womens Transverse 7-201 Oriana. Provider: Nita ANSARI, C-SectionObesity 7 700 Oriana Flowers PO Box complicating Medical K, 700 1522, , [facility] [address], trimesterEncounte , [facility] Dr GUZMAN, r for suprvsn of 120, [place] 120, [id number], normal , Jerome Cano, [place] second [place]OM[place] GUZMAN, tel: [id number] weeks [phone]. gestation of , [place]. tel: tel: [phone] [facility] Previous Low Eitan-1 Flowers Referring In Womens Ultrasound Transverse 7-201 Oriana. Provider: Nita ANSARI, C-SectionMaternal 7 700 Oriana Flowers PO Box care for excess Medical K, 700 1522, growth, [place] [facility] ad[place]so, [facility] Dr GUZMAN, unsp27 weeks 120, [place] 120, [id number], gestation of Jerome Cano, [place] THOMAS, THOMAS, tel: [phone]. , [place]. tel: tel: [phone] [facility] Previous Low Matthew-2 Flowers Referring In Womens Transverse 8-201 Oriana. Provider: Nita ANSARI, C-SectionMaternal 7 700 Oriana Flowers PO Box care for excess Medical K, 700 1522, growth, [place] [address], [facility] adelso, [facility] Dr GUZMAN, unsp24 weeks 120, [place] 120, [id number], gestation of Jerome Cano, [place] THOMAS, THOMAS, tel: [phone]. , [place]. tel: tel: [phone] [facility] Mild hyperemesis Matthew-0 Flowers Referring In Womens [id number] 6-201 Oriana. Provider: Nita ANSARI, weeks gestation 7 700 Oriana Flowers PO Box of Medical K, 700 1522, [place] [address], [facility] Dr GUZMAN, 120, [place] 120, [id number], [place]o, [place], [place], tel: [phone]. , [place]. tel: tel: [phone] [facility] Previous Low May-3 Flowers Referring In Womens Transverse 1-201 Oriana. Provider: Nita ANSARI C-SectionEncounte 7 700 Oriana Flowers PO Box r for suprvsn of Medical K, 700 1522, normal , [facility] [place], [facility] , [facility] Dr GUZMAN, [id number] weeks 120, [place] 120, [id number], gestation of [place], [place], [place], tel: [phone]. , [place]. tel: tel: [phone] [facility] [place] Previous Low May-3 Flowers Referring In Womens Ultrasound Transverse 1-201 Oriana. Provider: Nita ANSARI C-SectionMaternal 7 700 Oriana Flowers PO Box care for excess Medical K, 700 1522, [facility], [facility] adelso, , [facility] Dr GUZMAN, unsp19 weeks 120, [place] 120, [id number], gestation of Jerome Cano, [place] pregnancyObesity [place]OMAS, THOMAS, tel: complicating [phone]. , second , [place]. tel: trimester tel: [phone] [facility] Maternal care for July-1 Flowers Referring In Womens excess 6-201 Oriana. Provider: deborah Garcia second 7 700 Oriana Flowers PO Box tri, unsp17 weeks Medical K, 700 1522, [facility] Dr, [facility] Dr GUZMAN, 120, [place] 120, [id number], Jerome Cano, [place]OM[place], THOM[place], tel: [phone]. , [place]. tel: tel: [phone] [facility] Placenta previa May-0 Flowers Referring In Womens specified as w/o 4-201 Oriana. Provider: miguel Garcia second 7 700 Oriana Flowesr PO Box [id number] weeks Medical K, 700 1522, gestation of [facility] [place], pregnancyEncntr , [facility] Dr GUZMAN, screen for 120, [place] 120, [id number], infections w sexl Jerome Cano, [place] mode of transmiss [place] GUZMAN, tel: [phone]. , [place]. tel: tel: [phone] [facility] Previous Low Apr-1 Flowers Referring In Womens Transverse 7-201 Oriana. Provider: Health ELAN, C-SectionPlacenta 7 700 Oriana Flowers PO Box previa specified Medical K, 700 1522, as w/o [facility] [place], hemorrhage, first , [facility] Dr GUZMAN, [id number] weeks 120, Ad[place] 120, , gestation of [place] Cano, [place] pregnancyEncounte [place] GUZMAN, tel: r for suprvsn of [phone]. normal , , [place]. tel: first trimester tel: [phone] [facility] [place] Previous Low Apr-1 Flowers Referring In Womens Ultrasound Transverse 7-201 Oriana. Provider: Health ELAN, C-SectionObesity 7 700 Oriana Flowers PO Box complicating Medical K, 700 1522, , [facility] [place], [id number] weeks Dr, [facility] Dr GUZMAN, gestation of 120, Ad[place] 120, , Jerome Cano, [place] GUZMAN, tel: [phone]. , [place]. tel: tel: [phone] Cheng Cano Previous Low Mar-2 Flowers Referring In Womens Transverse 9-201 Oriana. Provider: Health ELAN, C-SectionObesity 7 700 Oriana Flowers PO Box complicating Medical K, 700 1522, , [facility] [place], trimesterSmoking , [facility] Dr GUZMAN, (tobacco) 120, Ad[place] 120, , complicating Jerome Cano, [place] , first [place]OM[place] GUZMAN, tel: [id number] weeks [phone]. gestation of , [place]. tel: tel: [phone] Cheng Cano 8 weeks gestation Mar-0 Flowers Referring In Womens of 8-201 Oriana. Provider: Nita ANSARI pregnancyEncounte 7 700 Oriana Flowers PO Box r for suprvsn of Medical K, 700 1522, normal , [place] [address], first trimester , [facility] [place], 120, [place] 120, [id number], Jerome Cano, [place], [place], tel: [phone]. , [place]. tel: tel: [phone] Cheng Cano 8 weeks gestation Mar-0 Flowers Referring In Womens Ultrasound of 8-201 Oriana. Provider: Nita ANSARI pregnancy 7 700 Oriana Flowers PO Box state, incidental Medical K, 700 1522, [place] [address], [facility] [place], 120, Ad[place] 120, , Jerome Cano, [place]OM[place], THOM[place], tel: [phone]. , [place]. tel: tel: [phone] Cheng Cano state, Mar-0 Flowers Referring In Womens incidentalLess 1-201 Oriana. Provider: carlie Garcia 8 weeks 7 700 Oriana Flowers PO Box gestation of Medical K, 700 1522, [address], [facility] Dr GUZMAN, 120, [place] 120, [id number], [place] Cano, [place], [place], tel: [phone]. , [place]. tel: tel: [phone] Cheng Cano Mar- Flowers In Womens 6-201 Oriana. Nita ANSARI, 4 700 PO Box Medical 1522, [place] Dr Beena, Adarsh [place], 120, [id number], [place], [place], tel: [phone] , [place]. tel: [phone] Family History Family Member Diagnosis Age At [...] name Insurance type Covered democrat ID Authorization(s) [facility] [id number] [employer] - Medicaid [place] [id number] [facility] [id number] [employer] - Medicaid MC [id number] [facility] [id number] [employer] - Medicaid MC [id number] [facility] [id number] [employer] - Medicaid [place] [id number] Social History Type Description Quantity Date Captured Alcohol Use Details No Caffeine Use Details Unknown Tobacco Use Status Smoking Status Former smoker Vital Signs Date / Height Weight BMI Pulse Blood Temperature Respiratory Body Head BMI Time: Rate Pressure Rate Surface Circumference percentile Area 224.10 39.6 129/81 -2017 lbs 9 mm[Hg] 9:50 kg/m AM eter (2) 39.5 2017 2 9:45 kg/m AM eter (2) Chief Complaint And Reason For Visit Unknown Chief Complaint And Reason For Visit Reason For Referral Reason For Referral Unknown Plan Of Care Date Type Action Status Goal Tobacco cessation counseling completed Appointment Leni Nugent BOOKED Future Order: Radiology Order Ultrasound OB Follow-up ([id number]) Ordered Future Order: Radiology Order Nuchal Translucency ([id number]) Ordered Future Order: Radiology Order Complete OB Ultrasound > 14 Ordered Weeks ([id number]) Future Order: Radiology Order Ultrasound OB Follow-up ([id number]) Ordered Future Order: Radiology Order Ultrasound < 14 wks ([id number]) Ordered Date Type Problem Goal Intervention Status [...]
--- OUTSIDE RECORDS SUMMARY | 2016-12-25 10:31 | External Medical Summary | Continuity of Care Document ---
:1990 Author Organization [facility] Address [address] [place], [place] [id number] Phone Care Team Providers Name Role Phone [...] stop) Clinical Status Previous Low Transverse - Obesity complicating , [...] Transverse - 31 weeks gestation of - state, incidental - [...] Procedures Procedure Date OB Visit No Charge - ENDOSCOPY REGISTERED NURSE Results Test Name Date and Time Measure [...] trimester, Medical K, 700 1522, unspDecreased [facility], movements, , [facility] Dr GUZMAN, third trimester, 120, Adarsh 120, [id number], unsp33 weeks Jerome [place]o, gestation of THOMAS GUZMAN, tel: [phone]. , [place]. tel: tel: [phone] [facility] Previous Low Aug-2 Flowers Referring In Womens Transverse 1-201 Oriana. Provider: Nita ANSARI C-SectionObesity 7 700 Oriana Flowers PO Box complicating Medical K, 700 1522, , third [facility], trimesterEncounte Dr, [facility] Dr GUZMAN, r for suprvsn of 120, Adarsh 120, [id number], normal , Jerome Cano, third [id number] [place]AS GUZMAN, tel: weeks gestation [phone]. of , [place]. tel: tel: [phone] [facility] Previous Low Aug-1 Flowers Referring In Womens Transverse 5-201 Oriana. Provider: Nita ANSARI, C-Eqtydvo39 weeks 7 700 Oriana Flowers PO Box gestation of Medical K, 700 1522, [address], [facility] Dr GUZMAN, 120, Adarsh 120, [id number], Jerome Cano, [place] GUZMAN, tel:[phone]. , [place]. tel: tel: [phone] [facility] Previous Low Aug-0 Flowers Referring In Womens Transverse 1-201 Oraina. Provider: Nita ANSARI, C-Swexvub83 weeks 7 700 Oriana Flowers PO Box gestation of Medical K, 700 1522, [facility] [address], [facility] Dr GUZMAN, 120, Adarsh 120, [id number], Jerome Cano, [place] GUZMAN, tel: [phone]. , [place]. tel: tel: [phone] [facility] Abnormal glucose Eitan-2 Flowers Referring In Womens complicating -201 Oriana. Provider: Nita ANSARI, 7 700 Oriana Flowers PO Box Medical K, 1522, [place] [address], [facility] Dr GUZMAN, 120, Adarsh 120, [id number], Jerome [place]o, [place] GUZMAN, tel:[phone]. , [place]. tel: tel: [phone] [facility] Previous Low Eitan-1 Flowers Referring In Womens Transverse 7-201 Oriana. Provider: Nita ANSARI, C-SectionObesity 7 700 Oriana Flowers PO Box complicating Medical K, 1522, , [facility] Be[place], trimesterEncounte , [facility] Dr GUZMAN, r for suprvsn of 120, Adarsh 120, , normal , Jerome Cano, [place] second [place]OMAS GUZMAN, tel: [id number] weeks [phone]. gestation of , [place]. tel: tel: [phone] [facility] Previous Low Eitan-1 Flowers Referring In Womens Ultrasound Transverse 7-201 Oriana. Provider: Nita ANSARI, C-SectionMaternal 700 Oriana Flowers PO Box care for excess Medical K, 1522, growth, [place] [address], [facility] Dr adelso, [facility] Dr GUZMAN, unsp27 weeks 120, Adarsh 120, [id number], gestation of Jerome [place], [place]AS GUZMAN, tel: [phone]. , [place]. tel: tel: [phone] [facility] Previous Low Matthew-2 Flowers Referring In Womens Transverse 8-201 Oriana. Provider: Nita ANSARI, C-SectionMaternal 7 700 Oriana Flowers PO Box care for excess Medical K, 700 1522, growth, [place] [address], [facility] Dr GUZMAN, unsp24 weeks 120, Adarsh 120, [id number], gestation of [place], [place], [place], tel: [phone]. , [place]. tel: tel: [phone] [facility] Mild hyperemesis Matthew-0 Flowers Referring In Womens [id number] 6-201 Oriana. Provider: Health ELAN, weeks gestation 7 700 Oriana Flowers PO Box of Medical K, 700 1522, [place] [address], [facility] Dr GUZMAN, 120, Adarsh 120, , Jerome [place]o, [place]AS GUZMAN, tel: [phone]. , [place]. tel: tel: [phone] [facility] Previous Low July-3 Flowers Referring In Womens Transverse - Oriana. Provider: Health ELAN, C-SectionEncounte 7 700 Oriana Flowers PO Box r for suprvsn of Medical K, 700 1522, normal , [place] [address], [facility] Dr GUZMAN, weeks 120, Adarsh 120, [id number], gestation of Jerome Cano, [place] THOMAS [place], tel: [phone]. , [place]. tel: tel: [phone] [facility] Previous Low July-3 Flowers Referring In Womens Ultrasound Transverse - Oriana. Provider: Health ELAN, C-SectionMaternal 7 700 Oriana Flowers PO Box care for excess Medical K, 700 1522, growth, [place] [address], [facility] Dr GUZMAN, unspObesity 120, Adarsh 120, [id number], complicating Jerome [place]o, [place] , second THOMAS GUZMAN, tel: [id number] weeks [phone]. gestation of , [place]. tel: tel: [phone] [facility] Maternal care for May-1 Flowers Referring In Womens excess 6-201 Oriana. Provider: Nita ANSARI, growth, second 7 700 Oriana Flowers PO Box tri, unsp17 weeks Medical , 700 1522, gestation of [facility], Dr, [facility] Center Dr GUZMAN, 120, Adarsh 120, [id number], Jerome Cano, [facility], [place], tel: [phone]. , [place]. tel: tel: [phone] [facility] Encntr screen for May-0 Flowers Referring In Womens infections w sexl 4-201 Oriana. Provider: Nita ANSARI, mode of 7 700 Oriana Flowers PO Box transmissPlacenta Medical , 700 1522, previa specified [facility], as w/o Dr miguel, [facility] Dr GUZMAN, second 120, Adarsh 120, , [id number] weeks Jerome [place], gestation of [place], tel: [phone]. , [place]. tel: tel: [phone] [facility] Previous Low Apr-1 Flowers Referring In Womens Transverse 7-201 Oriana. Provider: Nita ANSARI, C-SectionPlacenta 7 700 Oriana Flowers PO Box previa specified Medical , 700 1522, as w/o [facility], hemorrhage, first , [facility] Dr GUZMAN, trimesterEncounte 120, Adarsh 120, , r for suprvsn of Jerome [place], normal , [place], tel: first [id number] [phone]. weeks gestation , [place]. tel: of tel: [phone] [facility] Previous Low Apr-1 Flowers Referring In Womens Ultrasound Transverse 7-201 Oriana. Provider: Nita ANSARI, C-SectionObesity 7 700 Oriana Flowers PO Box complicating Medical , 700 1522, , first [facility] Beena, [id number] weeks , [facility] Center Dr GUZMAN, gestation of 120, Adarsh 120, , [place], [place], [place], THOMAS, tel:[phone]. , [place]. tel: tel: [phone] [facility] Previous Low Mar-2 Flowers Referring In Womens Transverse 9-201 Oriana. Provider: Nita ANSARI, C-SectionSmoking 7 700 Oriana Flowers PO Box (tobacco) Medical , 700 1522, complicating [facility] Be[place], , first , [facility] Dr GUZMAN, trimesterObesity 120, Adarsh 120, , complicating Jerome Cano, [place] , first THOMAS, THOMAS, tel: [id number] weeks [phone]. gestation of , [place]. tel: tel: [phone] Cheng Cano Encounter for Mar-0 Flowers Referring In Womens suprvsn of normal 8-201 Oriana. Provider: Nita ANSARI, , first 7 700 Oriana Flowers PO Box trimester8 weeks Medical , 700 1522, gestation of [facility] [place], , [facility] Dr GUZMAN, 120, Adarsh 120, , Jerome Cano, [place]OM[place], [place], tel: [phone]. , [place]. tel: tel: [phone] Cheng Cano state, Mar-0 Flowers Referring In Womens Ultrasound incidental8 weeks 8-201 Oriana. Provider: Nita ANSARI, gestation of 7 700 Oriana Flowers PO Box Medical , 700 1522, [place] [address], [facility] Center Dr GUZMAN, 120, Adarsh 120, , Jerome [place], [place], tel:[phone]. , [place]. tel: tel: [phone] Cheng Cano state, Mar-0 Flowers Referring In Womens incidentalLess 1-201 Oriana. Provider: Nita ANSARI, than 8 weeks 7 700 Oriana Flowers PO Box gestation of [facility], 700 1522, [place] [address], [facility] Dr GUZMAN, 120, Adarsh 120, [id number], Jerome [facility] [place], [place], tel: [phone]. , . tel: tel: [phone] Cheng Cano Flowers In Womens 6-201 Oriana. [facility], 4 700 PO [facility] [address], [place] [address] [place], [place], 120, [id number], [facility], tel: [phone] , . tel: [phone] Family History Family Member Diagnosis Age At [...] name Insurance type Covered democrat ID Authorization(s) [facility] [id number] [employer] [place] [id number] [facility] [id number] [employer] - Medicaid [place] [id number] [facility] [id number] [employer] - Medicaid [place] [id number] Social History Type Description Quantity Date Captured Alcohol Use Details No Caffeine Use Details Unknown Tobacco Use Status Smoking Status Former smoker Vital Signs Date / Height Weight BMI Pulse Blood Temperature Respiratory Body Head BMI Time: Rate Pressure Rate Surface Circumference percentile Area 220.50 39.0 -2016 lbs 6 3:51 kg/m PM eter (2) 220.50 39.0 128/76 -2016 lbs 6 mm[Hg] 3:52 kg/m PM eter (2) Chief Complaint And Reason For Visit Unknown Chief Complaint And Reason For Visit Reason For Referral Reason For Referral Unknown Plan Of Care Date Type Action Status Goal Tobacco cessation counseling completed Appointment Leni Nugent BOOKED Appointment Leni Nugent - [facility] - RC/S, PPTL BOOKED Future Order: Radiology Order Ultrasound OB Follow-up ([id number]) Ordered Future Order: Radiology Order Nuchal Translucency ([id number]) Ordered Future Order: Radiology Order Complete OB Ultrasound > 14 Ordered Weeks ([id number]) Future Order: Radiology Order Ultrasound < 14 wks ([id number]) Ordered Date Type Problem Goal Intervention Status [...]
--- OUTSIDE RECORDS SUMMARY | 2016-12-25 10:31 | External Medical Summary | Continuity of Care Document ---
:1990 Author Organization [facility] [facility] Address [address] [place], [place] [id number] Phone Care Team Providers Name Role Phone [...] Effective Dates (start - stop) Clinical Status Less than 8 weeks gestation of - state, incidental - Previous Low Transverse - 19 weeks gestation of - Encounter for suprvsn of normal - , second trimester Mild hyperemesis gravidarum - 20 weeks gestation [...] infections w sexl - mode of transmiss Abnormal glucose complicating - state, incidental - 8 weeks gestation of - 8 weeks gestation of - Encounter for suprvsn of normal - , first trimester Initiation of Oral Contraceptives - Active Procedures Procedure Date Unknown Results Test Name Date and Time Measure Units Reference Range Abnormal Flag Comments Panel Description: GLUCOSE TOLERANCE TEST, GESTATIONAL,4SPEC(100G) GLUCOSE, FASTING 08:01:00 89 mg/dL 65-94 N GLUCOSE, 1 HOUR 08:01:00 127 mg/dL <180 N GLUCOSE, 2 HOUR 08:01:00 130 mg/dL <155 N GLUCOSE, 3 HOUR 08:01:00 96 mg/dL <140 N 08:01:00 See Below Odonnell/Coustan Criteria: Two or more values greater than the above reference intervals are suggestive of gestational diabetes. Test performed at [facility] [id number] [place] TRUJILLO [id number]: SHARIF HICKEY DO,MPH Advance Directives Directive Yes / No Effective Date File Name Unknown Encounters Encounter Practice Location Reason(s) Diagnoses Date Provider Care Team Description For Visit Members [facility] Previous Low Oct- Flowers Referring In Womens Transverse 1-201 Oriana. Provider: Nita ANSARI, C-Czlaucw71 weeks 7 700 Oriana Flowers PO Box gestation of Medical , 700 1522, [place] [address], [facility] Dr GUZMAN, 120, Adarsh 120, , Jerome [place], [place], tel: [phone]. , [place]. tel: tel: [phone] [facility] Abnormal glucose Sep- Flowers Referring In Womens complicating 1-201 Oriana. Provider: Nita ANSARI, 7 700 Oriana Flowers PO Box Medical K, 700 1522, [place] [address], [facility] Dr GUZMAN, 120, Adarsh 120, , Jerome Cano, [place], tel:[phone]. , [place]. tel: tel: [phone] Cheng Cano Sep- Lfowers In Womens 8-201 Oriana. Health ELAN, 7 700 PO Box Medical 1522, [place] [address] [place], [place], 120, [id number], [place], [place], tel: [phone] , [place]. tel: [phone] Cheng Cano Previous Low Sep- Flowers Referring In Womens Transverse 7-201 Oriana. Provider: Nita ANSARI, C-SectionObesity 7 700 Oriana Flowers PO Box complicating Medical K, 700 1522, , [facility] [address], trimesterEncountalvin Barros, [facility] Dr GUZMAN, r for suprvsn of 120, Adarsh 120, , normal , Jerome Cano, [place] second THOMAS GUZMAN, tel: [id number] weeks [phone]. gestation of , [place]. tel: tel: [phone] [facility] Previous Low Eitan-1 Flowers Referring In Womens Ultrasound Transverse 7-201 Oriana. Provider: Nita ANSARI, C-SectionMaternal 7 700 Oriana Flowers PO Box care for excess Medical K, 700 1522, growth, [facility] [address], [facility] Dr GUZMAN, unsp27 weeks 120, Adarsh 120, [id number], gestation of Jerome Cano, [place]OM[place], [place], tel: [phone]. , [place]. tel: tel: [phone] [facility] Previous Low Matthew-2 Flowers Referring In Womens Transverse 8-201 Oriana. Provider: Nita ANSARI, C-SectionMaternal 7 700 Oriana Flowers PO Box care for excess Medical K, 700 1522, growth, [facility] Beena, [facility] adelso, [facility] Dr GUZMAN, unsp24 weeks 120, Adarsh 120, [id number], gestation of Jerome [place], [place], [place], tel: [phone]. , [place]. tel: tel: [phone] [facility] Mild hyperemesis Matthew-0 Flowers Referring In Womens [id number] 6-201 Oriana. Provider: Nita ANSARI, weeks gestation 7 700 Oriana Flowers PO Box of Medical K, 700 1522, [place] [address], [facility] Dr GUZMAN, 120, Adarsh 120, [id number], Jerome Cano, [place], [place], tel: [phone]. , [place]. tel: tel: [phone] [facility] Previous Low May-3 Flowers Referring In Womens Transverse 1-201 Oriana. Provider: Nita ANSARI, C-Vcimtls68 weeks 7 700 Oriana Flowers PO Box gestation of Medical K, 700 1522, pregnancyEncounte [facility], r for suprvsn of , [facility] Dr GUZMAN, normal , 120, Adarsh 120, [id number], second trimester Jerome Cano, [place] THOMAS GUZMAN, tel: [phone]. , [place]. tel: tel: [phone] [facility] Previous Low May-3 Flowers Referring In Womens Ultrasound Transverse 1-201 Oriana. Provider: Nita ANSARI, C-SectionMaternal 7 700 Oriana Flowers PO Box care for excess Medical K, 700 1522, growth, [facility], second adelso, , [facility] Dr GUZMAN, unspObesity 120, Adarsh 120, , complicating Jerome Cano, [place] , second THOMAS GUZMAN, tel: [id number] weeks [phone]. gestation of , [place]. tel: tel: [phone] Cheng Cano Maternal care for July- Flowers Referring In Womens excess 6-201 Oriana. Provider: Nita ANSARI, growth, second 7 700 Oriana Flowers PO Box tri, unsp17 weeks Medical K, 700 1522, gestation of [facility], Dr, [facility] Dr GUZMAN, 120, Adarsh 120, [id number], Jerome [place]o, [place] THOMAS GUZMAN, tel: [phone]. , [place]. tel: tel: [phone] Cheng Cano Placenta previa May-0 Flowers Referring In Womens specified as w/o 4-201 Oriana. Provider: Nita ANSARI hemor, second 7 700 Oriana Flowers PO Box [id number] weeks Medical K, 700 1522, gestation of [facility], pregnancyEncntr , [facility] Dr GUZMAN, screen for 120, Adarsh 120, [id number], infections w sexl Jerome [place]o, [place] mode of transmiss THOMAS GUZMAN, tel: [phone]. , [place]. tel: tel: [phone] Cheng Cano Previous Low Apr-1 Flowers Referring In Womens Transverse 7-201 Oriana. Provider: Nita ANSARI, C-SectionPlacenta 7 700 Oriana Flowers PO Box previa specified Medical K, 700 1522, [facility], first , [facility] Dr GUZMAN, [id number] weeks 120, Adarsh 120, , gestation of Jerome Cano, pregnancyEncounte THOMAS GUZMAN, tel: r for suprvsn of [phone]. normal , , [place]. tel: first trimester tel: [phone] [facility] Previous Low Apr-1 Flowers Referring In Womens Ultrasound Transverse 7-201 Oriana. Provider: Nita ANSARI, C-SectionObesity 7 700 Oriana Flowers PO Box complicating Medical K, 700 1522, , first [facility] Beena, [id number] weeks , [facility] Dr GUZMAN, gestation of 120, Adarsh 120, , Jerome [place]o, [place] THOMAS GUZMAN, tel: [phone]. , [place]. tel: tel: [phone] [facility] Previous Low Mar-2 Flowers Referring In Womens Transverse 9-201 Oriana. Provider: Nita ANSARI, C-SectionObesity 7 700 Oriana Flowers PO Box complicating Medical K, 700 1522, , first [facility] Beena, trimesterSmoking , [facility] Dr GUZMAN, (tobacco) 120, Adarsh 120, , complicating Jerome Cano, [place] , first THOMAS GUZMAN, tel: [id number] weeks [phone]. gestation of , [place]. tel: tel: [phone] [facility] 8 weeks gestation Mar-0 Flowers Referring In Womens of 8-201 Oriana. Provider: Nita ANSARI, pregnancyEncounte 7 700 Oriana Flowers PO Box r for suprvsn of Medical K, 700 1522, normal , [facility] Beena, first trimester , [facility] Dr GUZMAN, 120, Adarsh 120, , Jerome [place], [place], tel: [phone]. , [place]. tel: tel: [phone] Cheng Cano state, Mar-0 Flowers Referring In Womens Ultrasound incidental8 weeks 8-201 Oriana. Provider: Nita ANSARI, gestation of 7 700 Oriana Flowers PO Box Medical K, 700 1522, [place] [address], [facility] [place], 120, [place] 120, , Jerome Cano, [place], tel: [phone]. , [place]. tel: tel: [phone] Cheng Cano Less than 8 weeks May-0 Flowers Referring In Womens gestation of 1-201 Oriana. Provider: Nita ANSARI, pregnancy 7 700 Oriana Flowers PO Box state, incidental Medical K, 700 1522, [place] [address], [facility] [place], 120, Ad[place] 120, , Jerome Cano, [place], [place], tel: [phone]. , [place]. tel: tel: [phone] Cheng Cano Mar- Flowers In Womens 6-201 Oriana. Health ELAN, 4 700 PO Box Medical 1522, [place] [address] [place], [place], 120, , [place], [place], tel: [phone] , . tel: [phone] Family History Family Member Diagnosis Age At [...] Unknown Payers Payer name Insurance type Covered alliance party ID Authorization(s) [facility] [id number] [employer] - Medicaid [place] [id number] [facility] [id number] [employer] - Medicaid [place] [id number] Social History Type Description Quantity Date Captured [...] Leni Nugent BOOKED Appointment Leni Nugent - [facility] - RC/S, PPTL BOOKED Future Order: Radiology Order Ultrasound OB Follow-up ([id number]) Ordered Future Order: Radiology Order Nuchal Translucency ([id number]) Ordered Future Order: Radiology Order Complete OB Ultrasound > 14 Ordered Weeks ([id number]) Future Order: Radiology Order Ultrasound < 14 wks ([id number]) Ordered Date Type Problem Goal Intervention Status [...]
--- OUTSIDE RECORDS SUMMARY | 2016-12-25 10:32 | External Medical Summary | Continuity of Care Document ---
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 Results Test Name Date and Time Measure Units Reference Range Abnormal Flag Comments Panel Description: Glucose [Mass/volume] in Serum or Plasma --1 hour post 50 g glucose PO GLUCOSE, 140 mg/dL <140 H One hour value of > GESTATIONAL SCREEN 14:10:00 ts=335 mg/dL indicatesthe (50G)-140 CUTOFF need for a diagnostic 75 g dose 2-hour or100 g dose 3-hour oral glucose tolerance test;patient fasting is required.Test performed at [facility] [id number] [place] [address]Cnkzebrh: SHARIF HICKEY DO,MPH Panel Description: HEMOGLOBIN + HEMATOCRIT HEMOGLOBIN 14:10:00 11.4 g/dL 11.7-15.5 L HEMATOCRIT 14:10:00 33.8 % 35.0-45.0 L Test performed at [facility] [id number] [place] [id number]: SHARIF HICKEY DO,MPH Advance Directives Directive Yes / No Effective Date File Name Unknown Encounters Encounter Practice Location Reason(s) Diagnoses Date Provider Care Team Description For Visit [facility] Previous Low Oct- Flowers Referring In Womens Transverse - Oriana. Provider: Nita ANSARI, C-[id number] weeks 7 700 Oriana Flowers PO Box gestation of [facility], 700 1522, [facility] Dr Beena, [facility] Dr GUZMAN, 120, Adarsh 120, , Jerome Cano, [place], [place], tel:[phone]. , [place]. tel: tel: [phone] [facility] Abnormal glucose Sep- Flowers Referring In Womens complicating - Oriana. Provider: Nita ANSARI, 7 700 Oriana Flowers PO Box Medical , 1522, [place] [address], [facility] Dr GUZMAN, 120, Adarsh 120, , Jerome Cano, [place], [place], tel:[phone]. , [place]. tel: tel: [phone] [facility] Previous Low Sep- Flowers Referring In Womens Transverse - Oriana. Provider: Nita ANSARI, C-SectionObesity 7 700 Oriana Flowers PO Box complicating Medical , 1522, , [facility] [place], trimesterEncounte , [facility] [address] GUZMAN, r for suprvsn of 120, Adarsh 120, [id number], normal , Jerome Cano, second [place], tel:+ [email or web address] weeks [phone]. gestation of , [place]. tel: tel: [phone] [facility] Previous Low Eitan-1 Flowers Referring In Womens Ultrasound Transverse 7-201 Oriana. Provider: Nita ANSARI, C-SectionMaternal 7 700 Oriana Flowers PO Box care for excess Medical K, 700 1522, growth, [place] [address], [facility] Dr GUZMAN, unsp27 weeks 120, Adarsh 120, [id number], gestation of Jerome Cano, [place], [place], tel: [phone]. , [place]. tel: tel: [phone] [facility] Previous Low Matthew-2 Flowers Referring In Womens Transverse 8-201 Oriana. Provider: Nita ANSARI, C-SectionMaternal 7 700 Oriana Flowers PO Box care for excess Medical K, 700 1522, growth, [place] [address], [facility] Dr GUZMAN, unsp24 weeks 120, Adarsh 120, [id number], gestation of Jerome Cano, [place], tel: [phone]. , [place]. tel: tel: [phone] [facility] Mild hyperemesis Matthew-0 Flowers Referring In Womens [id number] 6-201 Oriana. Provider: Nita ANSARI, weeks gestation 7 700 Oriana Flowers PO Box of Medical K, 700 1522, [place] [address], [facility] Dr GUZMAN, 120, Adarsh 120, [id number], Jerome Cano, [place], tel: [phone]. , [place]. tel: tel: [phone] [facility] Previous Low May-3 Flowers Referring In Womens Transverse 1-201 Oriana. Provider: Nita ANSARI, C-SectionEncounte 7 700 Oriana Flowers PO Box r for suprvsn of Medical K, 700 1522, normal , [place] [address], [facility] Dr GUZMAN, weeks 120, Adarsh 120, [id number], gestation of Jerome Cano, [place], tel: [phone]. , [place]. tel: tel: [phone] [facility] Previous Low May-3 Flowers Referring In Womens Ultrasound Transverse 1-201 Oriana. Provider: Nita ANSARI, C-SectionMaternal 7 700 Oriana Flowers PO Box care for excess Medical , 700 1522, growth, [facility], second tri, , [facility] Dr GUZMAN, unspObesity 120, Adarsh 120, [id number], complicating JeromeJerome, [place] , second [place] GUZ[place], tel: [id number] weeks [phone]. gestation of , [place]. tel: tel: [phone] [facility] Maternal care for July- Flowers Referring In Womens excess 6-201 Oriana. Provider: Nita ANSARI, growth, second 7 700 Oriana Flowers PO Box tri, unsp17 weeks Medical , 700 1522, gestation of [facility], Dr, [facility] Dr GUZMAN, 120, Adarsh 120, [id number], Jerome Cano, [place], tel:[phone]. , [place]. tel: tel: [phone] [facility] Placenta previa May-0 Flwoers Referring In Womens specified as w/o 4-201 Oriana. Provider: miguel Garcia, second 7 700 Oriana Flowers PO Box trimesterEncntr Medical , 700 1522, screen for [facility], infections w sexjose Barros, [facility] Dr GUZMAN, mode of 120, Adarsh 120, [id number], [id number] weeks Jerome Cano, gestation of [place], tel: [phone]. , [place]. tel: tel: [phone] [facility] Previous Low Apr-1 Flowers Referring In Womens Transverse 7-201 Oriana. Provider: Nita ANSARI, C-SectionPlacenta 7 700 Oriana Flowers PO Box previa specified Medical K, 700 152, [facility], first , [facility] Dr GUZMAN, [id number] weeks 120, Adarsh 120, , gestation of Jerome Cano, [place] pregnancyEncounte [place], [place], tel: r for suprvsn of [phone]. normal , , [place]. tel: first trimester tel: [phone] [facility] Previous Low Apr-1 Flowers Referring In Womens Ultrasound Transverse 7-201 Oriana. Provider: Health ELAN, C-SectionObesity 7 700 Oriana Flowers PO Box complicating Medical K, 152, , first [facility] [place], [id number] weeks , [facility] Dr GUZMAN, gestation of 120, Adarsh 120, , Jerome Cano, [place], tel:[phone]. , [place]. tel: tel: [phone] Cheng Cano Previous Low Mar-2 Flowers Referring In Womens Transverse 9-201 Oriana. Provider: Nita ANSARI, C-SectionObesity 7 700 Oriana Flowers PO Box complicating Medical K, 152, , first [place] [address], trimesterSmoking , [facility] Dr GUZMAN, (tobacco) 120, Adarsh 120, , complicating Jerome Cano, [place] , first [place] GUZMAN, tel: [id number] weeks [phone]. gestation of , [place]. tel: tel: [phone] Cheng Cano 8 weeks gestation Mar-0 Flowers Referring In Womens of 8-201 Oriana. Provider: Health ELAN, pregnancyEncounte 7 700 Oriana Flowers PO Box r for suprvsn of Medical K, 700 1522, normal , [facility] [place], first trimester , [facility] Center Dr GUZMAN, 120, Adarsh 120, , Jerome Cano, [place], tel: [phone]. , [place]. tel: tel: [phone] Cheng Cano 8 weeks gestation Mar-0 Flowers Referring In Womens Ultrasound of 8-201 Oriana. Provider: Nita ANSARI, pregnancy 7 700 Oriana Flowers PO Box state, incidental Medical K, 700 1522, Center [address], [facility] [place], 120, Adarsh 120, [id number], Jerome [facility] [place], [place], tel: [phone]. , . tel: tel: [phone] Cheng Cano state, Mar-0 Flowers Referring In Womens incidentalLess 1-201 Oriana. Provider: Nita ANSARI, than 8 weeks 7 700 Oriana Flowers PO Box gestation of Medical K, 700 1522, Center [address], [facility] [place], 120, Adarsh 120, [id number], Jerome [place], [place], [place], tel: [phone]. , . tel: tel: [phone] Cheng Cano Sadiq- Flowers In Womens 6-201 Oriana. Nita ANSARI, 4 700 PO Box Medical 1522, [place] Dr Beena, [facility] [place], 120, [id number], [facility] [place], tel: [phone] , . tel: [phone] Family History Family Member Diagnosis Age At [...] Unknown Payers Payer name Insurance type Covered libertarian ID Authorization(s) [facility] [id number] [employer] - Medicaid [place] [id number] [facility] [id number] [employer] - Medicaid [place] [id number] Social History Type Description Quantity Date Captured Alcohol Use Details No Caffeine Use Details Unknown Tobacco Use Status Smoking Status Former smoker Vital Signs Date / Height Weight BMI Pulse Blood Temperature Respiratory Body Head BMI Time: Rate Pressure Rate Surface Circumference percentile Area 218.80 38.7 lbs 5 mm[Hg] 1:33 kg/m PM eter (2) 38.6 -2017 1 1:26 kg/m PM eter (2) 38.6 128 1 mm[Hg] 1:31 kg/m PM eter (2) Chief Complaint And Reason For Visit Unknown Chief Complaint And Reason For Visit Reason For Referral Reason For Referral Unknown Plan Of Care Date Type Action Status Goal Tobacco cessation counseling completed Appointment Leni Nugent BOOKED Appointment Leni Nugent BOOKED Appointment Leni Nugent - [facility] - RC/S, PPTL BOOKED Future Order: Radiology Order Ultrasound OB Follow-up ([id number]) Ordered Future Order: Radiology Order Nuchal Translucency ([id number]) Ordered Future Order: Radiology Order Complete OB Ultrasound > 14 Ordered Weeks ([id number]) Future Order: Radiology Order Ultrasound < 14 wks ([id number]) Ordered Date Type Problem Goal Intervention Status [...]
--- OUTSIDE RECORDS SUMMARY | 2016-12-25 10:32 | External Medical Summary | Continuity of Care Document ---
:1990 Author Organization [facility] Address [address] [place], [place] [phone] Phone Care Team Providers Name Role Phone [...] Effective Dates (start - stop) Clinical Status Abnormal glucose complicating - Less than 8 weeks gestation of [...] infections w sexl - mode of transmiss state, incidental - 8 weeks gestation of - 8 weeks gestation of - Encounter for suprvsn of normal - , first trimester Initiation of Oral Contraceptives - Active Procedures Procedure Date Glucose tolerance test (GTT) GTT-added samples Venpnctr fngr/heel/ear stick routne Results Test Name Date and Time Measure Units Reference Range Abnormal Flag Comments Unknown Advance Directives Directive Yes / No Effective Date File Name Unknown Encounters Encounter Practice Location Reason(s) Diagnoses Date Provider Care Team Description For Visit Members [facility] Previous Low Flowers Referring In Womens Transverse 1-201 Oriana. Provider: Nita ANSARI, C-Qsdipiz99 weeks 7 700 Oriana Flowers PO Box gestation of Medical K, 700 1522, Center [address], [facility] Dr GUZMAN, 120, Adarsh 120, [id number], Jerome Cano, [place], tel:[phone]. , [place]. tel: tel: [phone] [facility] Abnormal glucose Eitan-2 Flowers Referring In Womens complicating -201 Oriana. Provider: Nita ANSARI, 700 Oriana Flowers PO Box Medical K, 1522, [place] [address], [facility] Dr GUZMAN, 120, Adarsh 120, , Jerome Cano, [place], tel:[phone]. , [place]. tel: tel: [phone] [facility] Previous Low Eitan-1 Flowers Referring In Womens Transverse 7-201 Oriana. Provider: Nita ANSARI, C-SectionObesity 7 700 Oriana Flowers PO Box complicating Medical K, 1522, , [facility] [address], trimesterEncounte , [facility] Dr GUZMAN, r for suprvsn of 120, Adarsh 120, , normal , Jerome Cano, [place] second [place], tel: [id number] weeks [phone]. gestation of , [place]. tel: tel: [phone] [facility] Previous Low Eitan-1 Flowers Referring In Womens Ultrasound Transverse 7-201 Oriana. Provider: Nita ANSARI, C-SectionMaternal 700 Oriana Flowers PO Box care for excess Medical K, 700 1522, growth, [place] [address], [facility] Dr adelso, [facility] Dr GUZMAN, unsp27 weeks 120, Adarsh 120, [id number], gestation of Jerome Cano, [place], tel: [phone]. , [place]. tel: tel: [phone] [facility] Previous Low Matthew-2 Flowers Referring In Womens Transverse 8-201 Oriana. Provider: Nita ANSARI, C-SectionMaternal 7 700 Oriana Flowers PO Box care for excess Medical K, 700 1522, growth, [place] [address], [facility] Dr GUZMAN, unsp24 weeks 120, Adarsh 120, [id number], gestation of Jerome Cano, [place], [place], tel: [phone]. , [place]. tel: tel: [phone] [facility] Mild hyperemesis Matthew-0 Flowers Referring In Womens [email or web address] 6-201 Oriana. Provider: Nita ANSARI, weeks gestation 7 700 Oriana Flowers PO Box of Medical K, 700 1522, [place] [address], [facility] Dr GUZMAN, 120, Adarsh 120, , Jerome Cano, [place], tel:[phone]. , [place]. tel: tel: [phone] [facility] Previous Low July-3 Flowers Referring In Womens Transverse 1-201 Oriana. Provider: Nita ANSARI, C-[id number] weeks 7 700 Oriana Flowers PO Box gestation of Medical K, 700 1522, pregnancyEncounte [place] [address], r for suprvsn of , [facility] Dr GUZMAN, normal , 120, Adarsh 120, [id number], second trimester Cano Cano, [place], tel: [phone]. , [place]. tel: tel: [phone] [facility] Previous Low July-3 Flowers Referring In Womens Ultrasound Transverse - Oriana. Provider: Nita ANSARI, C-SectionMaternal 7 700 Oriana Flowers PO Box care for excess Medical K, 700 1522, growth, [place] [address], [facility] Dr GUZMAN, unspObesity 120, Adarsh 120, [id number], complicating Jerome Cano, [place] , second [place] GU[place], tel: [id number] weeks [phone]. gestation of , [place]. tel: tel: [phone] [facility] Maternal care for July- Flowers Referring In Womens excess 6-201 Oriana. Provider: Nita ANSARI, growth, second 7 700 Oriana Flowers PO Box tri, unsp17 weeks Medical , 700 1522, gestation of [facility], Dr, [facility] Dr GUZMAN, 120, Adarsh 120, [id number], Jerome Cano, [facility], [place], tel: [phone]. , [place]. tel: tel: [phone] [facility] Placenta previa May-0 Flowers Referring In Womens specified as w/o 4-201 Oriana. Provider: ashlee Garciaor, second 7 700 Oriana Flowers PO Box [id number] weeks Medical , 700 1522, gestation of [facility], pregnancyEncntr , [facility] Dr GUZMAN, screen for 120, Adarsh 120, , infections w sexl Jerome Cano, mode of transmiss [place], [place], tel: [phone]. , [place]. tel: tel: [phone] [facility] Previous Low Apr-1 Flowers Referring In Womens Transverse 7-201 Oriana. Provider: iNta ANSARI, C-SectionPlacenta 7 700 Oriana Flowers PO Box previa specified Medical , 700 1522, as w/o [facility], hemorrhage, first , [facility] Dr GUZMAN, [id number] weeks 120, Adarsh 120, , gestation of Jerome Cano, pregnancyEncounte [place], [place], tel: r for suprvsn of [phone]. normal , , [place]. tel: first trimester tel: [phone] [facility] Previous Low Apr-1 Flowers Referring In Womens Ultrasound Transverse 7-201 Oriana. Provider: Nita ANSARI, C-SectionObesity 7 700 Oriana Flowers PO Box complicating Medical , 700 1522, , first [facility] [place], gccciqwcu13 weeks , [facility] Dr GUZMAN, gestation of 120, Adarsh 120, , Jerome Cano, [place], tel: [phone]. , [place]. tel: tel: [phone] [facility] Previous Low Mar-2 Flowers Referring In Womens Transverse 9-201 Oriana. Provider: Nita ANSARI, C-SectionObesity 7 700 Oriana Flowers PO Box complicating Medical , 152, , first [place] [address], trimesterSmoking , [facility] Dr GUZMAN, (tobacco) 120, Adarsh 120, , complicating Jerome Cano, [place] , first [place] GUZ[place], tel: [id number] weeks [phone]. gestation of , [place]. tel: tel: [phone] [facility] 8 weeks gestation Mar-0 Flowers Referring In Womens of 8-201 Oriana. Provider: Nita ANSARI pregnancyEncounte 7 700 Oriana Flwoers PO Box r for suprvsn of Medical , 1522, normal , [place] [address], first trimester , [facility] Dr GUZMAN, 120, Adarsh 120, , Jerome Cano, [place], [place], tel: [phone]. , [place]. tel: tel: [phone] [facility] state, Mar-0 Flowers Referring In Womens Ultrasound incidental8 weeks 8-201 Oriana. Provider: Nita ANSARI, gestation of 7 700 Roiana Flowers PO Box Medical K, 700 1522, [place] [address], [facility] Center Dr GUZMAN, 120, Adarsh 120, , Jerome Cano, [place], tel:[phone]. , [place]. tel: tel: [phone] [facility] Less than 8 weeks Mar-0 Flowers Referring In Womens gestation of 1-201 Oriana. Provider: Nita ANSARI, pregnancy 7 700 Oriana Flowers PO Box state, incidental Medical K, 152, [place] [address], [facility] Dr GUZMAN, 120, Adarsh 120, [id number], Jerome Cano, [place], tel: [phone]. , . tel: tel: [phone] Cheng Cano Flowers In Womens 6-201 [facility], 4 700 PO Box [place] [id number], [address] [address], [facility] [place], 120, [id number], [facility] [place], tel: [phone] , . tel: [phone] Family History Family Member Diagnosis Age At [...] name Insurance type Covered democrat ID Authorization(s) [facility] [id number] [employer] - Medicaid [place] [id number] [facility] [id number] [employer] - Medicaid [place] [id number] Social History Type Description Quantity Date Captured [...] Leni Nugent BOOKED Appointment Leni Nugent - [facility] - RC/[facility], PPTL BOOKED Future Order: Radiology Order Ultrasound OB Follow-up ([id number]) Ordered Future Order: Radiology Order Nuchal Translucency ([id number]) Ordered Future Order: Radiology Order Complete OB Ultrasound > 14 Ordered Weeks ([id number]) Future Order: Radiology Order Ultrasound < 14 wks ([id number]) Ordered Date Type Problem Goal Intervention Status [...]
--- OUTSIDE RECORDS SUMMARY | 2016-12-25 10:32 | External Medical Summary | Continuity of Care Document ---
:1990 Author Organization [facility] Address [address] [place], [place] [phone] Phone Care Team Providers Name Role Phone [...] Effective Dates (start - stop) Clinical Status Maternal care for excess growth, - third trimester, unsp Decreased movements, third - trimester, unsp 33 weeks gestation of - state, incidental - [...] suprvsn of normal - , first trimester Placenta previa specified as w/o - hemorrhage, first trimester 12 weeks gestation of - Previous Low Transverse - Maternal care for excess growth, - second tri, unsp 24 weeks gestation of - Previous Low Transverse - Obesity complicating , second - trimester 27 weeks gestation of - Encounter for suprvsn of normal - , second trimester Previous Low Transverse - 29 weeks gestation of - Previous Low Transverse - 31 weeks gestation of - Previous Low Transverse - Obesity complicating , third - trimester Encounter for suprvsn of normal - , third trimester 32 weeks gestation of - Previous Low Transverse - Maternal care for excess growth, - third trimester, unsp 35 weeks gestation of - state, incidental - 8 weeks gestation of - Encntr screen for infections w sexl - mode of transmiss Placenta previa specified as w/o - hemor, second trimester 15 weeks gestation of - Maternal care for excess growth, - second tri, unsp 17 weeks gestation of - Abnormal glucose complicating - Encounter for suprvsn of normal - , first trimester 8 weeks gestation of - Initiation of Oral Contraceptives - Active Procedures Procedure Date non-stress test OB Visit No Charge Results Test Name Date and Time Measure Units Reference Range Abnormal Flag Comments Unknown Advance Directives Directive Yes / No Effective Date File Name Unknown Encounters Encounter Practice Location Reason(s) Diagnoses Date Provider Care Team Description For Visit [facility] Ot Sep-1 Flowers Referring In Womens related 4-201 Oriana. Provider: Nita ANSARI, conditions, third 7 700 Oriana Flowers PO Box trimesterPrevious Medical K, 700 1522, Low Transverse [facility], [id number] weeks , [facility] Dr GUZMAN, gestation of 120, Adarsh 120, , Jerome Cano, [place] GUZMAN, tel: [phone]. , [place]. tel: tel: [phone] Cheng Cano Previous Low Sep- Flowers Referring In Womens Ultrasound Transverse 4-201 Oriana. Provider: Nita ANSARI, C-SectionMaternal 7 700 Oriana Flowers PO Box care for excess Medical K, 700 1522, growth, [place], third trimester, , [facility] Dr GUZMAN, unsp35 weeks 120, Adarsh 120, , gestation of Jerome [place]o, [place] GUZMAN, tel: [phone]. , [place]. tel: tel: [phone] Cheng Cano Maternal care for Flowers Referring In Womens excess 9-201 Oriana. Provider: Nita ANSARI, growth, third 7 700 Oriana Flowers PO Box trimester, Medical K, 700 1522, unspDecreased [facility] [place], movements, , [facility] Dr GUZMAN, third trimester, 120, Adarsh 120, [id number], unsp33 weeks Jerome Cano, gestation of [place] GUZMAN, tel: [phone]. , [place]. tel: tel: [phone] [facility] Previous Low Aug-2 Flowers Referring In Womens Transverse 1-201 Oriana. Provider: Nita ANSARI, C-SectionObesity 7 700 Oriana Flowers PO Box complicating Medical , 1522, , [facility] [place], Cheyanne Barros, [facility] Dr GUZMAN, r for suprvsn of 120, Adarsh 120, [id number], normal , Jerome Cano, [place] third [email or web address] [place]AS GUZMAN, tel: weeks gestation [phone]. of , [place]. tel: tel: [phone] [facility] Previous Low Aug-1 Flowers Referring In Womens Transverse 5-201 Oriana. Provider: Nita ANSARI, C-[id number] weeks 7 700 Oriana Flowers PO Box gestation of Medical , 700 1522, [facility], [facility] Dr GUZMAN, 120, Adarsh 120, , Jerome Cano, [place] GUZMAN, tel: [phone]. , [place]. tel: tel: [phone] Cheng Cano Previous Low Aug-0 Flowers Referring In Womens Transverse -201 Oriana. Provider: Nita ANSARI, C-Ebkpztg80 weeks 7 700 Oriana Flowers PO Box gestation of Medical , 1522, [facility] [address], [facility] [address] GUZMAN, 120, Adarsh 120, [id number], Jerome Cano, [place] GUZMAN, tel: [phone]. , [place]. tel: tel: [phone] [facility] Abnormal glucose Eitan-2 Flowers Referring In Womens complicating 1-201 Oriana. Provider: Nita ANSARI, 7 700 Oriana Flowers PO Box Medical , 700 1522, [facility], [facility] Dr GUZMAN, 120, Adarsh 120, [id number], Jerome Cano, [place] GUZMAN, tel: [phone]. , [place]. tel: tel: [phone] [facility] Previous Low Eitan-1 Flowers Referring In Womens Transverse 7-201 Oriana. Provider: Ntia ANSARI, C-SectionObesity 7 700 Oriana Flowers PO Box complicating Medical K, 700 1522, , second [place], weeks Dr, [facility] Dr GUZMAN, gestation of 120, Adarsh 120, [id number], pregnancyEncounte Jerome Cano, [place] r for suprvsn of [place], [place], tel: normal , [phone]. second trimester , [place]. tel: tel: [phone] [facility] Previous Low Eitan-1 Flowers Referring In Womens Ultrasound Transverse 7-201 Oriana. Provider: Nita ANSARI, C-SectionMaternal 7 700 Oriana Flowers PO Box care for excess Medical K, 700 1522, [facility] tri, , [facility] Dr GUZMAN, unsp27 weeks 120, Adarsh 120, [id number], gestation of [place], [place] GUZMAN, tel: [phone]. , [place]. tel: tel: [phone] [facility] Previous Low Matthew-2 Flowers Referring In Womens Transverse 8-201 Oriana. Provider: Nita ANSARI, C-SectionMaternal 7 700 Oriana Flowers PO Box care for excess Medical K, 700 1522, growth, [facility], [facility] triDr, [facility] Center Dr GUZMAN, unsp24 weeks 120, Adarsh 120, [id number], gestation of Jerome Cano, [place] GUZMAN, tel: [phone]. , [place]. tel: tel: [phone] [facility] Mild hyperemesis Matthew-0 Flowers Referring In Womens [id number] 6-201 Oriana. Provider: Nita ANSARI, weeks gestation 7 700 Oriana Flowers PO Box of Medical K, 700 1522, [facility] [address], [facility] Dr GUZMAN, 120, Adarsh 120, , Jerome Cano, [place] GUZMAN, tel: [phone]. , [place]. tel: tel: [phone] [facility] Previous Low May-3 Flowers Referring In Womens Transverse 1-201 Oriana. Provider: Nita ANSARI, C-SectionEncounte 7 700 Oriana Flowers PO Box r for suprvsn of Medical K, 700 1522, normal , [facility], [facility] , [facility] Dr GUZMAN, [email or web address] weeks 120, Adarsh 120, , gestation of Jerome Cano, [place]OM[place], [place], tel: [phone]. , [place]. tel: tel: [phone] [facility] Previous Low May-3 Flowers Referring In Womens Ultrasound Transverse 1-201 Oriana. Provider: Nita ANSARI, C-SectionMaternal 7 700 Oriana Flowers PO Box care for excess Medical K, 700 1522, [facility], [facility], [facility] Dr adelso, [facility] Dr GUZMAN, unspObesity 120, Adarsh 120, , complicating Jerome Caon, [place] , second [place] GUZMAN, tel: [id number] weeks [phone]. gestation of , [place]. tel: tel: [phone] [facility] Maternal care for July-1 Flowers Referring In Womens excess 6-201 Oriana. Provider: Nita ANSARI, growth, second 7 700 Oriana Flowers PO Box tri, unsp17 weeks Medical K, 700 1522, gestation of [place], , [facility] [address] GUZMAN, 120, Adarsh 120, , Jerome Cano, [place] TOHMAS GUZMAN, tel: [phone]. , [place]. tel: tel: [phone] [facility] Encntr screen for May-0 Flowers Referring In Womens infections w sexl 4-201 Oriana. Provider: Nita ANSARI, mode of 7 700 Oriana Flowers PO Box transmissPlacenta Medical , 1522, previa specified [facility], as w/o Dr miguel, [facility] Dr GUZMAN, second 120, Adarsh 120, [id number], [id number] weeks Jerome Cano, [place] gestation of THOMAS, THOM[place], tel: [phone]. , [place]. tel: tel: [phone] [facility] Previous Low Apr-1 Flowers Referring In Womens Transverse 7- Oriana. Provider: Nita ANSARI, C-SectionEncounte 7 700 Oriana Flowers PO Box r for suprvsn of Medical , 152, normal , [facility], first , [facility] Dr GUZMAN, trimesterPlacenta 120, Adarsh 120, , previa specified Jerome Cano, [place] as w/o [place] GUZMAN, tel: hemorrhage, first [phone]. [id number] weeks , [place]. tel: gestation of tel: [phone] [facility] Previous Low Apr-1 Flowers Referring In Womens Ultrasound Transverse - Oriana. Provider: Nita ANSARI, C-SectionObesity 700 Oriana Flowers PO Box complicating Medical , 152, , first [facility], [email or web address] weeks , [facility] [address] GUZMAN, gestation of 120, Adarsh 120, , Jerome Cano, [place] GUZMAN, tel: [phone]. , [place]. tel: tel: [phone] [facility] Previous Low Mar-2 Flowers Referring In Womens Transverse 9- Oriana. Provider: Nita ANSARI, C-SectionObesity 700 Oriana Flowers PO Box complicating Medical , 152, , [facility] [place], trimesterSmoking , [facility] [address] GUZMAN, (tobacco) 120, Adarsh 120, , complicating Jerome Cano, [place] , first THOMAS GUZMAN, tel: [id number] weeks [phone]. gestation of , [place]. tel: tel: [phone] Cheng Cano Encounter for May-0 Flowers Referring In Womens suprvsn of normal 8-201 Oriana. Provider: Nita ANSARI, , first 7 700 Oriana Flowers PO Box trimester8 weeks Medical , 700 1522, gestation of [place], , [facility] [place], 120, Adarsh 120, [id number], Jerome Cano, [place]OM[place], [place], tel: [phone]. , [place]. tel: tel: [phone] Cheng Cano state, May- Flowers Referring In Womens Ultrasound incidental8 weeks 8-201 Oriana. Provider: Nita ANSARI, gestation of 7 700 Oriana Flowers PO Box Medical K, 700 1522, [place] [facility], [facility] Dr GUZMAN, 120, Adarsh 120, [id number], Jerome Caon, THOMAS, [place], tel: [phone]. , [place]. tel: tel: [phone] Cheng Cano state, May-0 Flowers Referring In Womens incidentalLess 1-201 Oriana. Provider: Nita ANSARI, than 8 weeks 7 700 Oriana Flowers PO Box gestation of Medical K, 700 1522, [facility] [address], [facility] Dr GUZMAN, 120, Adarsh 120, [id number], Jerome Cano, THOMAS, [place], tel: [phone]. , [place]. tel: tel: [phone] Cheng Cano Sadiq- Flowers In Womens 6-201 Oriana. Health ELAN, 4 700 PO Box Medical 1522, [place] [facility] [place], [facility] [place], 120, [id number], [place], [place] GUZMAN, tel: [phone] , [place]. tel: [phone] Family History Family Member Diagnosis Age At [...] Insurance type Covered constitution party ID Authorization(s) [facility] [id number] [employer] - Medicaid [place] [id number] [facility] [id number] [employer] - Medicaid [place] [id number] [facility] [id number] [employer] - Medicaid [place] [id number] Social History Type Description Quantity Date Captured Alcohol Use Details No Caffeine Use Details Unknown Tobacco Use Status Smoking Status Former smoker Vital Signs Date / Height Weight BMI Pulse Blood Temperature Respiratory Body Head BMI Time: Rate Pressure Rate Surface Circumference percentile Area 39.0 -2017 6 9:22 kg/m AM eter (2) 221.40 39.2 138/82 -2017 lbs 2 mm[Hg] 9:27 kg/m AM eter (2) Chief Complaint And Reason For Visit Unknown Chief Complaint And Reason For Visit Reason For Referral Reason For Referral Unknown Plan Of Care Date Type Action Status Goal Tobacco cessation counseling completed Appointment Leni Nugent BOOKED Appointment Leni Nugent - [facility] [place] - RC/S, PPTL BOOKED Future Order: Radiology Order Ultrasound OB Follow-up ([id number]) Ordered Future Order: Radiology Order Nuchal Translucency ([id number]) Ordered Future Order: Radiology Order Complete OB Ultrasound > 14 Ordered Weeks ([id number]) Future Order: Radiology Order Ultrasound OB Follow-up ([id number]) Ordered Future Order: Radiology Order Ultrasound < 14 wks ([id number]) Ordered Date Type Problem Goal Intervention Status [...]
--- OUTSIDE RECORDS SUMMARY | 2016-12-25 10:32 | External Medical Summary | Continuity of Care Document ---
:1990 Author Organization [facility] Address [address] [place], [place] [id number] Phone Care Team Providers Name Role Phone [...] stop) Clinical Status Previous Low Transverse - 29 weeks gestation of - state, incidental - [...] - Obesity complicating , third - trimester 32 weeks gestation of - Encounter for suprvsn of normal - , third trimester Previous Low Transverse - 31 weeks gestation of - Maternal care for excess growth, - second tri, unsp 17 weeks gestation of - Placenta previa specified as w/o - hemor, second trimester Encntr screen for infections w sexl - mode of transmiss 15 weeks gestation of - Abnormal glucose complicating - 8 weeks gestation of - state, [...] For Visit [facility] Previous Low Oct-2 Flowers Referring In Womens Transverse - Oriana. Provider: Nita ANSARI, C-SectionObesity 7 700 Oriana Flowers PO Box complicating Medical K, 700 1522, , third Center [facility], [id number] weeks , [facility] Center Dr GUZMAN, gestation of 120, Adarsh 120, [id number], pregnancyEncounte Jerome Cano, r for suprvsn of [place], [place], tel: normal , [phone]. third trimester , [place]. tel: tel: [phone] Cheng Cano Previous Low Oct-1 Flowers Referring In Womens Transverse - Oriana. Provider: Nita ANSARI, C-[id number] weeks 7 700 Oriana Flowers PO Box gestation of Medical K, 700 1522, [facility] [address], [facility] Dr GUZMAN, 120, Adarsh 120, , Jerome Cano, [place], [place], tel: [phone]. , [place]. tel: tel: [phone] Cheng Cano Previous Low Aug-0 Flowers Referring In Womens Transverse - Oriana. Provider: Nita ANSARI, C-Xsichng30 weeks 7 700 Oriana Flowers PO Box gestation of Medical K, 700 1522, [facility], [facility] Dr GUZMAN, 120, Adarsh 120, , Jerome Cano, [place], [place], tel: [phone]. , [place]. tel: tel: [phone] Cheng Cano Abnormal glucose Sep- Flowers Referring In Womens complicating - Oriana. Provider: Nita ANSARI, 7 700 Oriana Flowers PO Box Medical K, 700 1522, [facility], [facility] Center Dr GUZMAN, 120, Adarsh 120, [id number], Jerome Cano, [place], [place], tel: [phone]. , [place]. tel: tel: [phone] [facility] Previous Low Eitan-1 Flowers Referring In Womens Transverse 7-201 Oriana. Provider: Nita ANSARI, C-SectionObesity 7 700 Oriana Flowers PO Box complicating Medical K, 700 1522, , [facility] [place], trimesterEncounte , [facility] Dr GUZMAN, r for suprvsn of 120, Adarsh 120, [id number], normal , Jerome Cano, [place] second [place] GUZMAN, tel: [id number] weeks [phone]. gestation of , [place]. tel: tel: [phone] [facility] Previous Low Eitan-1 Flowers Referring In Womens Ultrasound Transverse 7-201 Oriana. Provider: Nita ANSARI, C-SectionMaternal 7 700 Oriana Flowers PO Box care for excess Medical K, 700 1522, growth, [facility] adelso, [facility] Dr GUZMAN, unsp27 weeks 120, Adarsh 120, , gestation of Jerome Cano, [place], [place], tel: [phone]. , [place]. tel: tel: [phone] [facility] Previous Low Matthew-2 Flowers Referring In Womens Transverse 8-201 Oriana. Provider: Nita ANSARI, C-SectionMaternal 7 700 Oriana Flowers PO Box care for excess Medical K, 700 1522, growth, [place], [facility] Dr adelso, [facility] Dr GUZMAN, unsp24 weeks 120, Adarsh 120, [id number], gestation of Jerome Cano, [place]OM[place], [place], tel: [phone]. , [place]. tel: tel: [phone] [facility] Mild hyperemesis Matthew-0 Flowers Referring In Womens [id number] 6-201 Oriana. Provider: Nita ANSARI, weeks gestation 7 700 Oriana Flowers PO Box of Medical K, 700 1522, [place] [address], [facility] Dr GUZMAN, 120, Adarsh 120, [id number], Jerome Cano, [place]OM[place] GUZMAN, tel: [phone]. , [place]. tel: tel: [phone] [facility] Previous Low May-3 Flowers Referring In Womens Transverse 1-201 Oriana. Provider: Nita ANSARI, C-SectionEncounte 7 700 Oriana Flowers PO Box r for suprvsn of Medical K, 700 1522, normal , [facility] , [facility] Dr GUZMNA, [id number] weeks 120, Adarsh 120, [id number], gestation of [place], [place], [place]OMAS, tel: [phone]. , [place]. tel: tel: [phone] [facility] Previous Low May-3 Flowers Referring In Womens Ultrasound Transverse 1-201 Oriana. Provider: Nita ANSARI C-SectionMaternal 7 700 Oriana Flowers PO Box care for excess Medical K, 700 1522, growth, [facility], [facility] Dr adelso, [facility] Dr GUZMAN, unspObesity 120, Adarsh 120, , complicating Jerome Cano, [place] , second [place], [place], tel: [id number] weeks [phone]. gestation of , [place]. tel: tel: [phone] [facility] Maternal care for July-1 Flowers Referring In Womens excess 6-201 Oriana. Provider: deborah aGrcia, second 7 700 Oriana Flowers PO Box tri, unsp17 weeks Medical K, 700 1522, gestation of [facility], Dr, [facility] Dr GUZMAN, 120, Adarsh 120, [id number], Jerome Cano, [place]OM[place], [place], tel: [phone]. , [place]. tel: tel: [phone] [facility] Placenta previa May-0 Flowers Referring In Womens specified as w/o 4-201 Oriana. Provider: miguel Garcia, second 7 700 Oriana Flowers PO Box trimesterEncntr Medical K, 700 1522, screen for [facility] [place], infections w sexl , [facility] Dr GUZMAN, mode of 120, Adarsh 120, [id number], [id number] weeks Jerome Cano, gestation of THOMAS, THOM[place], tel: [phone]. , [place]. tel: tel: [phone] [facility] Previous Low Apr-1 Flowers Referring In Womens Transverse 7-201 Oriana. Provider: Health ELAN, C-SectionPlacenta 7 700 Oriana Flowers PO Box previa specified Medical K, 700 1522, as w/o [facility], hemorrhage, first , [facility] Dr GUZMAN, [id number] weeks 120, Adarsh 120, , gestation of Jerome Cano, [place] pregnancyEncounte [place], tel: r for suprvsn of [phone]. normal , , [place]. tel: first trimester tel: [phone] Cheng Cano Previous Low Apr-1 Flowers Referring In Womens Ultrasound Transverse 7-201 Oriana. Provider: Nita ANSARI, C-SectionObesity 7 700 Oriana Flowers PO Box complicating Medical K, 700 1522, , first [place], [email or web address], [facility] Dr GUZMAN, gestation of 120, Adarsh 120, , Jerome Cano, [place], [place], tel: [phone]. , [place]. tel: tel: [phone] Cheng Cano Previous Low Mar-2 Flowers Referring In Womens Transverse 9-201 Oriana. Provider: Health ELAN, C-SectionObesity 7 700 Oriana Flowers PO Box complicating Medical K, 700 1522, , first [place], trimesterSmoking , [facility] Dr GUZMAN, (tobacco) 120, Adarsh 120, , complicating Jerome Cano, [place] , first [place] GUZMAN, tel: [id number] weeks [phone]. gestation of , [place]. tel: tel: [phone] Cheng Cano 8 weeks gestation Mar-0 Flowers Referring In Womens of 8-201 Oriana. Provider: Nita ANSARI, pregnancyEncounte 7 700 Oriana Flowers PO Box r for suprvsn of Medical K, 700 1522, normal , [place], first trimester , [facility] Dr GUZMAN, 120, Adarsh 120, , Jerome Cano, [place], [place], tel: [phone]. , [place]. tel: tel: [phone] Cheng Cano 8 weeks gestation Mar-0 Flowers Referring In Womens Ultrasound of 8-201 Oriana. Provider: Nita ANSARI, pregnancy 7 700 Oriana Flowers PO Box state, incidental Medical K, 700 1522, [place] [address], [facility] Dr GUZMAN, 120, Adarsh 120, , Jerome [place], [place], [place], tel: [phone]. , [place]. tel: tel: [phone] Cheng Cano state, Mar-0 Flowers Referring In Womens incidentalLess 1-201 Oriana. Provider: Nita ANSARI, than 8 weeks 7 700 Oriana Flowers PO Box gestation of Medical K, 700 1522, [facility] [place] [place], , [facility] Dr GUZMAN, 120, Adarsh 120, , Jerome [place], [facility], [place], tel: [phone]. , [place]. tel: tel: [phone] Cheng Cano Mar- Flowers In Womens 6-201 Oriana. Nita ANSARI, 4 700 PO Box Medical 1522, [place] [address] [place]ena, [facility] [place], 120, [id number], Cano, [facility], tel: [phone] , [place]. tel: [phone] Family History Family Member Diagnosis Age At [...] name Insurance type Covered democrat ID Authorization(s) [facility] [id number] [employer] - Medicaid MC [id number] [facility] [id number] [employer] - Medicaid [place] [id number] [facility] [id number] [employer] - Medicaid [place] [id number] Social History Type Description Quantity Date Captured Alcohol Use Details No Caffeine Use Details Unknown Tobacco Use Status Smoking Status Former smoker Vital Signs Date / Height Weight BMI Pulse Blood Temperature Respiratory Body Head BMI Time: Rate Pressure Rate Surface Circumference percentile Area 219.70 38.9 130/74 -2017 lbs 1 mm[Hg] 3:02 kg/m PM eter (2) 219.70 38.9 -2017 lbs 1 3:01 kg/m PM eter (2) 38.7 -2017 5 2:56 kg/m PM eter (2) Chief Complaint And Reason For Visit Unknown Chief Complaint And Reason For Visit Reason For Referral Reason For Referral Unknown Plan Of Care Date Type Action Status Goal Tobacco cessation counseling completed Appointment Leni Nugent BOOKED Appointment Leni Nugent - [facility] [place] - RC/S, PPTL BOOKED Future Order: Radiology Order Ultrasound OB Follow-up ([id number]) Ordered Future Order: Radiology Order Nuchal Translucency ([id number]) Ordered Future Order: Radiology Order Complete OB Ultrasound > 14 Ordered Weeks ([id number]) Future Order: Radiology Order Ultrasound < 14 wks ([id number]) Ordered Date Type Problem Goal Intervention Status [...]
--- OUTSIDE RECORDS SUMMARY | 2016-12-25 10:32 | External Medical Summary | Continuity of Care Document ---
:1990 Author Organization [facility] Address [address] [place], [place] [id number] Phone Care Team Providers Name Role Phone [...] Effective Dates (start - stop) Clinical Status Oth related conditions, - third trimester Previous Low Transverse - 35 weeks gestation of - Less than [...] Reference Range Abnormal Flag Comments Panel Description: STREPTOCOCCUS, GROUP B CULTURE STREPTOCOCCUS, GROUP SEE NOTE STREPTOCOCCUS, GROUP B CULTURE B CULTURE 10:40:00 MICRO NUMBER: [id number] TEST STATUS: FINAL SPECIMEN SOURCE: VAGINAL/ANORECTAL SPECIMEN QUALITY: ADEQUATE RESULT: No group B Streptococcus isolatedREPORT COMMENT:FASTING:UNKNOWNTest performed at [facility] [id number] [place] [address]Amxkisxa: SHARIF HICKEY DO,MPH Advance Directives Directive Yes / No Effective Date File Name Unknown Encounters Encounter Practice Location Reason(s) Diagnoses Date Provider Care Team Description For Visit Members Cheng Cano Previous Low Dec- Flowers Referring In Womens Transverse 5-201 Oriana. Provider: Roberth Garcia 7 Oriana Flowers PO Box r for suprvsn of Medical K, [address] 1522, normal , [place], third [email or web address] , [facility] Dr GUZMAN, weeks gestation 120, Adarsh 120, [id number], of Jerome Cano, [place] GUZMAN, tel:[phone]. [phone] , [place]. tel: tel: [phone] Cheng Cano Previous Low Nov- Flowers Referring In Womens Transverse 8-201 Oriana. Provider: Health PA, C-SectionEncounte 7 700 Oriana Flowers PO Box r for suprvsn of Medical K, 700 1522, normal , [facility] [place], third Dr, [facility] Dr GUZMAN, weeks gestation 120, Adarsh 120, , of [place], [place], [place], tel:+ [phone]. , [place]. tel: tel: [phone] Cheng Cano Previous Low Sep-2 Flowers Referring In Womens Transverse 1-201 Oriana. Provider: Health ELAN, C-[id number] weeks 7 700 Oriana Flowers PO Box gestation of Medical K, 700 1522, [facility] [address], [facility] Dr GUZMAN, 120, Adarsh 120, , Jerome Cano, [place], [place], tel: [phone]. , [place]. tel: tel: [phone] Cheng Cano Ot Sep-1 Flowers Referring In Womens related 4-201 Oriana. Provider: Health ELAN, conditions, third 7 700 Oriana Flowers PO Box trimesterPrevious Medical K, 700 1522, Low Transverse [facility] [place], C-Qgwhlek51 weeks Dr, [facility] Dr GUZMAN, gestation of 120, Adarsh 120, , [place], [place], [place], tel: [phone]. , [place]. tel: tel: [phone] Cheng Cano Previous Low Sep-1 Flowers Referring In Womens Ultrasound Transverse 4-201 Oriana. Provider: Health ELAN, C-SectionMaternal 7 700 Oriana Flowers PO Box care for excess Medical K, 700 1522, growth, [facility] [place], third trimester, , [facility] Dr GUZMAN, unsp35 weeks 120, Adarsh 120, , gestation of Jerome Cano, [place], [place], tel: [phone]. , [place]. tel: tel: [phone] Cheng Cano Maternal care for Aug-2 Flowers Referring In Womens excess 9-201 Oriana. Provider: Nita ANSARI, growth, third 7 700 Oriana Flowers PO Box trimester, Medical , 700 1522, unspDecreased [facility], movements, , [facility] Dr GUZMAN, third trimester, 120, Adarsh 120, [id number], unsp33 weeks Cano Cano, gestation of [place], [place], tel: [phone]. , [place]. tel: tel: [phone] [facility] Previous Low Aug-2 Flowers Referring In Womens Transverse 1-201 Oriana. Provider: Nita ANSARI, C-Xhrpbyq73 weeks 7 700 Oriana Flowers PO Box gestation of [facility], 700 1522, pregnancyEncounte [facility], r for suprvsn of , [facility] Dr GUZMAN, normal , 120, Adarsh 120, [id number], third Cano Cano, trimesterObesity [place] GUZMAN, tel: complicating [phone]. , third , [place]. tel: trimester tel: [phone] [facility] Previous Low Aug-1 Flowers Referring In Womens Transverse 5-201 Oriana. Provider: Nita ANSARI, C-Fkvbxmr25 weeks 7 700 Oriana Flowers PO Box gestation of Medical , 700 1522, [facility] [address], [facility] Dr GUZMAN, 120, Adarsh 120, [id number], Jerome Cano, [place] GUZMAN, tel: [phone]. , [place]. tel: tel: [phone] [facility] Previous Low Aug-0 Flowers Referring In Womens Transverse 1-201 Oriana. Provider: Nita ANSARI, C-Jwitzij80 weeks 7 700 Oriana Flowers PO Box gestation of [facility], 700 1522, [facility] [address], [facility] Dr GUZMAN, 120, Adarsh 120, [id number], Jerome Cano, [place] GUZMAN, tel: [phone]. , [place]. tel: tel: [phone] [facility] Abnormal glucose Eitan-2 Flowers Referring In Womens complicating 1-201 Oriana. Provider: Nita ANSARI, 7 700 Oriana Flowers PO Box Medical K, 700 1522, [place] [address], [facility] Dr GUZMAN, 120, Adarsh 120, [id number], Jerome Cano, [place] GUZMAN, tel: [phone]. , [place]. tel: tel: [phone] [facility] Previous Low Eitan-1 Flowers Referring In Womens Transverse 7-201 Oriana. Provider: Nita ANSARI, C-SectionObesity 7 700 Oriana Flowers PO Box complicating Medical K, 700 1522, , [facility] [place], trimesterEncounte , [facility] Dr GUZMAN, r for suprvsn of 120, Adarsh 120, [id number], normal , Jerome Cano, [place] second [place] GUZMAN, tel: [id number] [phone]. gestation of , [place]. tel: tel: [phone] [facility] Previous Low Sep-1 Flowers Referring In Womens Ultrasound Transverse 7- Oriana. Provider: Nita ANSARI, C-SectionMaternal 7 700 Oriana Flowers PO Box care for excess Medical K, 700 1522, growth, [place] [facility]so, [facility] Dr GUZMAN, unsp27 weeks 120, Adarsh 120, [id number], gestation of [place], [place] GUZMAN, tel: [phone]. , [place]. tel: tel: [phone] [facility] Previous Low Matthew-2 Flowers Referring In Womens Transverse 8- Oriana. Provider: Nita ANSARI, C-SectionMaternal 7 700 Oriana Flowers PO Box care for excess Medical K, 700 1522, growth, [place], [facility] Dr adelso, [facility] Dr GUZMAN, unsp24 weeks 120, Adarsh 120, [id number], gestation of Jerome Cano, [place] GUZMAN, tel:[phone]. , [place]. tel: tel: [phone] [facility] Mild hyperemesis Matthew-0 Flowers Referring In Womens [id number] 6-201 Oriana. Provider: Nita ANSARI, weeks gestation 7 700 Oriana Flowers PO Box of Medical K, 700 1522, [place] [address], [facility] Dr GUZMAN, 120, Adarsh 120, , [place]o, [place], tel: [phone]. , [place]. tel: tel: [phone] [facility] Previous Low May-3 Flowers Referring In Womens Transverse 1-201 Oriana. Provider: Nita ANSARI, C-SectionEncounte 7 700 Oriana Flowers PO Box r for suprvsn of Medical K, 700 1522, normal , [facility], [facility] , [facility] Dr GUZMAN, weeks 120, Adarsh 120, [id number], gestation of Jerome Cano, [place], tel: [phone]. , [place]. tel: tel: [phone] [facility] Previous Low May-3 Flowers Referring In Womens Ultrasound Transverse 1-201 Oriana. Provider: Nita ANSARI, C-SectionMaternal 7 700 Oriana Flowers PO Box care for excess Medical K, 700 1522, growth, [facility], [facility] Dr adelso, [facility] Dr GUZMAN, unsp19 weeks 120, Adarsh 120, [id number], gestation of Jerome Cano, [place] pregnancyObesity [place], [place], tel: complicating [phone]. , second , [place]. tel: trimester tel: [phone] [facility] Maternal care for July-1 Flowers Referring In Womens excess 6-201 Oriana. Provider: Nita ANSARI, growth, second 7 700 Oriana Flowers PO Box tri, unsp17 weeks Medical K, 700 1522, gestation of [facility], Dr, [facility] Dr GUZMAN, 120, Adarsh 120, [id number], Jerome Cano, [place] GUZMAN, tel: [phone]. , [place]. tel: tel: [phone] Cheng Cano Encntr screen for May-0 Flowers Referring In Womens infections w sexl 4-201 Oriana. Provider: Nita ANSARI, mode of 7 700 Oriana Flowers PO [facility], 700 1522, previa specified [facility], as w/o Dr miguel, [facility] Dr GUZMAN, second 120, Adarsh 120, [id number], [id number] weeks Jerome Cano, [place] gestation of [place] GUZMAN, tel: [phone]. , [place]. tel: tel: [phone] Cheng Cano Previous Low Apr-1 Flowers Referring In Womens Transverse 7-201 Oriana. Provider: Nita ANSARI, C-Wahieib55 weeks 7 700 Oriana Flowers PO Box gestation of [facility], 700 1522, pregnancyPlacenta [facility], previa specified , [facility] Dr GUZMAN, as w/o 120, Adarsh 120, [id number], hemorrhage, first Jerome Cano, [place] trimesterEncounte [place] GUZMAN, tel: r for suprvsn of [phone]. normal , , [place]. tel: first trimester tel: [phone] Cheng Cano Previous Low Apr-1 Flowers Referring In Womens Ultrasound Transverse 7-201 Oriana. Provider: Nita ANSARI, C-Spbntod03 weeks 7 700 Oriana Flowers PO Box gestation of [facility], 700 1522, pregnancyObesity [facility], complicating , [facility] Dr GUZMAN, , first 120, Adarsh 120, [id number], trimester Jerome Cano, [place] GUZMAN, tel: [phone]. , [place]. tel: tel: [phone] Cheng Cano Previous Low Mar-2 Flowers Referring In Womens Transverse 9-201 Oriana. Provider: Nita ANSARI, C-SectionObesity 7 700 Oriana Flowers PO Box complicating Medical , 152, , first [facility], [email or web address] weeks , [facility] Dr GUZMAN, gestation of 120, Adarsh 120, [id number], pregnancySmoking Jerome Seiling, (tobacco) [place], [place], tel: complicating [phone]. , first , [place]. tel: trimester tel: [phone] Cano 8 weeks gestation Mar-0 Flowers Referring In Womens of 8-201 Oriana. Provider: Nita ANSARI, pregnancyEncounte 7 700 Oriana Flowers PO Box r for suprvsn of Medical , 152, normal , [facility], first trimester , [facility] Dr GUZMAN, 120, Adarsh 120, , Jerome Cano, [facility], [place], tel: [phone]. , [place]. tel: tel: [phone] Cheng Cano 8 weeks gestation Mar-0 Flowers Referring In Womens Ultrasound of 8-201 Oriana. Provider: Nita ANSARI, pregnancy 7 700 Oriana Flowers PO Box , incidental Medical , 700 1522, [place] [address], [facility] Dr GUZMAN, 120, Adarsh 120, [id number], Jerome Cano, [facility], [place], tel: [phone]. , [place]. tel: tel: [phone] Cheng Cano Less than 8 weeks Mar-0 Flowers Referring In Womens gestation of 1-201 Oriana. Provider: Nita ANSARI pregnancy 7 700 Oriana Flowers PO Box critical access hospital, [facility], 152, [place] [address], [facility] Dr GUZMAN, 120, Adarsh 120, [id number], Jerome Cano, [facility], [place], tel: [phone]. , [place]. tel: tel: [phone] Cano Flowers In Womens 6-201 Oriana. [place], 4 [address] [place] [address], [place] [address] [place], [facility], 120, [id number], Cano, [facility], tel:[phone] , . tel: [phone] Family History Family Member Diagnosis Age At [...] Record Payers Payer name Insurance type Covered republican ID Authorization(s) [facility] [id number] [employer] [place] [employer] - Medicaid [place] [id number] [facility] [id number] [employer] [place] [employer] - [place] [id number] [facility] [id number] [employer] [place] [employer] - Medicaid [place] [id number] [facility] [id number] [employer] - Medicaid [place] [id number] Social History Type Description Quantity Date Captured Alcohol Use Details No Caffeine Use Details Unknown Tobacco Use Status Smoking Status Former smoker Vital Signs Date / Height Weight BMI Pulse Blood Temperature Respiratory Body Head BMI Time: Rate Pressure Rate Surface Circumference percentile Area 223.10 39.5 128/81 2017 lbs 2 mm[Hg] 10:02 kg/m AM eter (2) 39.2 -2016 2 9:40 kg/m AM eter (2) Chief Complaint And Reason For Visit Unknown Chief Complaint And Reason For Visit Reason For Referral Reason For Referral Unknown Plan Of Care Date Type Action Status Goal Tobacco cessation counseling completed Appointment Leni Nugent - SILVINA/S, PPTL BOOKED Future Order: Radiology Order Ultrasound OB Follow-up ([id number]) Ordered Future Order: Radiology Order Nuchal Translucency ([id number]) Ordered Future Order: Radiology Order Complete OB Ultrasound > 14 Ordered Weeks ([id number]) Future Order: Radiology Order Ultrasound OB Follow-up ([id number]) Ordered Future Order: Radiology Order Ultrasound < 14 wks ([id number]) Ordered Date Type Problem Goal Intervention Status [...]
[2016-12-25] MEDS ORDERED: NOZIN NASAL SWAB NAS ONE ×2 (10:33)
[2016-12-25] MEDS ORDERED: CEFAZOLIN 1 G INJECTION IVP ONE (10:33)
[2016-12-25] MEDS ORDERED: CEFAZOLIN PREMIX (MC ONLY) 2 GM/50 ML BAG IV ONE (10:33)
--- OUTSIDE RECORDS SUMMARY | 2016-12-25 10:33 | External Medical Summary | Continuity of Care Document ---
:1990 Demographics Phone Unavailable Preferred Language Unknown Marital Status Unknown Yazidi Affiliation Unknown Race Unknown Ethnic Group Unknown Author Organization [facility] Allergies Active Description Code Type Severity Reaction Onset Reported/ Identified Relationship Clinical to Patient Status Yes No Known 64000 3 N/A N/A Drug 0 Allergies Medications Medication Packaging Start Date Stop Date Route Dosage Sig Tablet 10/04/2013 03/16/2016 SPRINTEC take 1 tablet by oral route every day Tablet 05/21/2016 06/30/2016 DICLEGIS take 1 tablet by oral route every day in the morning, 1 tablet in the mid-afternoo n, and 2 tablets at bedtime Tablet 07/17/2016 07/29/2016 DIFLUCAN take 1 by Oral route now may repeat in 1 week Problems Date Dx Attending Type Code Diagnosis Diagnosed By Coded 05/21/2016 Oriana Flowers Z33.1 state, incidental 05/21/2016 Oriana Flowers3A.08 8 weeks gestation of 06/30/2016 Oriana Flowers O34.211 Previous Low Transverse 06/30/2016 Oriana Flowers O99.211 Obesity complicating , first trimester 06/30/2016 Oriana Flowers3A.12 12 weeks gestation of 08/14/2016 Oriana Flowers O34.211 Previous Low Transverse 08/14/2016 Oriana Flowers O36.62x0 Maternal care for excess growth, second tri, unsp 08/14/2016 Oriana Flowers O99.212 Obesity complicating , second trimester 08/14/2016 Oriana Flowers3A.19 19 weeks gestation of 09/29/2016 Oriana Flowers O34.211 Previous Low Transverse 09/29/2016 Oriana Flowers O36.62x0 Maternal care for excess growth, second tri, unsp 09/29/2016 Oriana Flowers3A.27 27 weeks gestation of 10/06/2016 Oriana Flowers O99.810 Abnormal glucose complicating 10/06/2016 Lionel, Oriana Lynn O99.810 Abnormal glucose complicating 11/27/2016 Lionel, Oriana Sheehan Leah O34.211 Previous Low Transverse 11/27/2016 Lionel, Oriana Lynn O36.63x0 Maternal care for excess growth, third trimester, unsp 11/27/2016 Lionel, Oriana Lynn Z3A.35 35 weeks gestation of Procedures Code Description Performed By Performed On OB US 05/21/2016 70698 < 14 WKS, SINGLE FETUS 06/30/2016 93758 Ultrasound, Nuchal Translucency Measurement 08/13/2016 80499 Ultrasnd exam of preg uterus, compl 09/29/2016 04544 Ultrasnd preg uterus, flwup/repeat 10/03/2016 19777 Venpnctr fngr/heel/ear stick routne 10/03/2016 02216 Glucose tolerance test (GTT) 10/03/2016 48250 GTT-added samples 11/27/2016 70932 Ultrasnd preg uterus, flwup/repeat Results Encounters ACCT No. Visit Discharge Status Pt. Type Provider Facility Loc./Unit Complaint Date/Time [id number] 03/28/2013 ACT Unknown [id number] 10:25:00 [id number] 03/21/2013 ACT Unknown [id number] 09:34:00 [id number] 03/14/2013 ACT Unknown [id number] 10:29:00 [id number] 01/10/2013 ACT Unknown [id number] 10:13:00 [id number] 12/04/2016 12/04/2016 CLS Outpatient Flowers, 09:40:00 23:59:59 Oriana Sheehan [id number] 11/27/2016 11/27/2016 CLS Outpatient Flowers, 09:40:00 23:59:59 Oriana Sissy [id number] 11/27/2016 11/27/2016 CLS Outpatient Flowers, 09:15:00 23:59:59 Oriana Sissy [id number] 11/11/2016 11/11/2016 CLS Outpatient Flowers, 09:10:00 23:59:59 Oriana Sissy [id number] 11/03/2016 11/03/2016 CLS Outpatient Flowers, 15:20:00 23:59:59 Oriana Sissy [id number] 11/03/2016 11/03/2016 CLS Outpatient Flowers, 13:26:00 23:59:59 Oriana Sheehan [id number] 10/28/2016 10/28/2016 CLS Outpatient Flowers, 15:00:00 23:59:59 Oriana Sheehan [id number] 10/14/2016 10/14/2016 CLS Outpatient Flowers, 15:00:00 23:59:59 Oriana Sheehan [id number] 10/03/2016 10/03/2016 CLS Outpatient Flowers, 08:10:00 23:59:59 Oriana Sheehan [id number] 09/30/2016 09/30/2016 CLS Outpatient Flowers, 08:26:00 23:59:59 Oriana Sheehan [id number] 09/29/2016 09/29/2016 CLS Outpatient Flowers, 13:50:00 23:59:59 Oriana Sheehan [id number] 09/29/2016 09/29/2016 CLS Outpatient Flowers, 13:15:00 23:59:59 Oriana Sheehan [id number] 09/10/2016 09/10/2016 CLS Outpatient Flowers, 13:40:00 23:59:59 Oriana Sheehan [id number] 08/20/2016 08/20/2016 CLS Outpatient Aguilera, 17:15:00 23:59:59 Toro Gomez [id number] 08/19/2016 08/19/2016 CLS Outpatient Flowers, 13:10:00 23:59:59 Oriana Sheehan [id number] 08/13/2016 08/13/2016 CLS Outpatient Flowers, 09:15:00 23:59:59 Oriana Sheehan [id number] 08/13/2016 08/13/2016 CLS Outpatient Flowers, 08:45:00 23:59:59 Oriana Sheehan [id number] 07/29/2016 07/29/2016 CLS Outpatient Flowers, 15:00:00 23:59:59 Oriana Sheehan [id number] 07/17/2016 07/17/2016 CLS Outpatient Flowers, 14:00:00 23:59:59 Oriana Sheehan [id number] 07/10/2016 07/10/2016 CLS Outpatient Flowers, 08:30:00 23:59:59 Oriana Sheehan [id number] 06/30/2016 06/30/2016 CLS Outpatient Flowers, 14:40:00 23:59:59 Oriana Sheehan [id number] 06/30/2016 06/30/2016 CLS Outpatient Flowers, 14:15:00 23:59:59 Oriana Sheehan [id number] 06/25/2016 06/25/2016 CLS Outpatient Flowers, 11:12:00 23:59:59 Oriana Sheehan [id number] 06/20/2016 06/20/2016 CLS Outpatient Flowers, 15:07:00 23:59:59 Oriana Sheehan [id number] 06/11/2016 06/11/2016 CLS Outpatient Flowers, 13:15:00 23:59:59 Oriana Sheehan [id number] 05/21/2016 05/21/2016 CLS Outpatient Flowers, 10:25:00 23:59:59 Oriana Sheehan [id number] 05/21/2016 05/21/2016 CLS Outpatient Flowers, 09:45:00 23:59:59 Oriana Sheehan [id number] 05/15/2016 05/15/2016 CLS Outpatient Flowers, 11:07:00 23:59:59 Oriana Sheehan [id number] 05/14/2016 05/14/2016 CLS Outpatient Flowers, 15:00:00 23:59:59 Oriana Sheehan [id number] 12/28/2014 12/28/2014 CLS Outpatient Flowers, 09:42:00 23:59:59 Oriana Sheehan [id number] 11/21/2014 11/21/2014 CLS Outpatient Flowers, 11:44:00 23:59:59 Oriana Sheehan [id number] 12/11/2016 Document 09:30:00 Registrati on [id number] 05/14/2016 Document 15:11:43 Registrati on
--- OUTSIDE RECORDS SUMMARY | 2016-12-25 10:33 | External Medical Summary | Continuity of Care Document ---
:1990 Author Organization [facility] Address [address] [place], [place] [id number] Phone Care Team Providers Name Role Phone [...] stop) Clinical Status Previous Low Transverse - 31 weeks gestation [...] Oral Contraceptives - Active Procedures Procedure Date Immuniz admnin, 1 vac, sngl/combo 19 Yrs + TDAP VACCINE >7 IM OB Visit No Charge Results Test Name [...] 1522, unspDecreased Center [place], movements, , [facility] Dr GUZMAN, third trimester, 120, Adarsh 120, [id number], unsp33 weeks Jerome [place], gestation of THOMAS GUZMAN, tel:[phone]. , [place]. tel: tel: [phone] Cheng Cano Previous Low Aug-2 Flowers Referring In Womens Transverse 1-201 Oriana. Provider: Nita ANSARI, C-SectionObesity 7 700 Oriana Flowers PO Box complicating Medical , 700 1522, , [facility] Elfego Hargrove, trimesterEncounte , [facility] Dr GUZMAN, r for suprvsn of 120, Adarsh 120, [id number], normal , Jerome Cano, third THOMAS GUZMAN, tel: weeks gestation [phone]. of , [place]. tel: tel: [phone] Cheng Cano Previous Low Aug-1 Flowers Referring In Womens Transverse 5-201 Oriana. Provider: Nita ANSARI, C-Lcaxikp14 weeks 7 700 Oriana Flowers PO Box gestation of Medical , 700 1522, [facility] [address], [facility] Dr GUZMNA, 120, Adarsh 120, [id number], Jerome Cano, THOMAS GUZMAN, tel: [phone]. , [place]. tel: tel: [phone] Cheng Cano Previous Low Aug-0 Flowers Referring In Womens Transverse 1- Oriana. Provider: Nita ANSARI, C-Pdievhv76 weeks 7 700 Oriana Flowers PO Box gestation of Medical K, 700 1522, [facility] [address], [facility] Dr GUZMAN, 120, Adarsh 120, [id number], Jerome Cano, [place] THOMAS GUZMAN, tel: [phone]. , [place]. tel: tel: [phone] Associates Jerome Abnormal glucose Eitan-2 Flowers Referring In Womens complicating - Oriana. Provider: Nita ANSARI, 7 700 Oriana Flowers PO Box Medical K, 700 1522, [place] [address], [facility] Dr GUZMAN, 120, Adarsh 120, , Jerome Cano, THOMAS GUZMAN, tel: [phone]. , [place]. tel: tel: [phone] Cheng Cano Previous Low Sep- Flowers Referring In Womens Transverse - Oriana. Provider: Nita ANSARI, C-SectionObesity 7 700 Oriana Flowers PO Box complicating Medical K, 1522, , [facility] Elfego Hargrove, Cheyanne Barros, [facility] Dr GUZMAN, r for suprvsn of 120, Adarsh 120, [id number], normal , Jerome Cano, second THOMAS GUZMAN, tel: [id number] weeks [phone]. gestation of , [place]. tel: tel: [phone] Cheng Cano Previous Low Sep-1 Flowers Referring In Womens Ultrasound Transverse - Oriana. Provider: Nita ANSARI, C-SectionMaternal 7 700 Oriana Flowers PO Box care for excess Medical K, 700 1522, growth, [place], [facility] Dr adelso, [facility] Dr GUZMAN, unsp27 weeks 120, Adarsh 120, [id number], gestation of Jerome Cano, [place] THOMAS GUZMAN, tel: [phone]. , [place]. tel: tel: [phone] Associates [facility] Previous Low Matthew-2 Flowers Referring In Womens Transverse 8-201 Oriana. Provider: Nita ANSARI, C-SectionMaternal 7 700 Oriana Flowers PO Box care for excess Medical K, 700 1522, growth, [place], [address], [facility] Dr GUZMAN, unsp24 weeks 120, Adarsh 120, [id number], gestation of Jerome Cano, [place] THOMAS, THOMAS, tel: [phone]. , [place]. tel: tel: [phone] Associates Jerome Mild hyperemesis Matthew-0 Flowers Referring In Womens [id number] 6-201 Oriana. Provider: Nita ANSARI, weeks gestation 7 700 Oriana Flowers PO Box of Medical K, 700 1522, [place] [address], [facility] Dr GUZMAN, 120, Adarsh 120, [id number], Jerome Cano, THOMAS GUZMAN, tel:[phone]. , [place]. tel: tel: [phone] [facility] Previous Low May-3 Flowers Referring In Womens Transverse 1-201 Oriana. Provider: Nita ANSARI, C-SectionEncounte 7 700 Oriana Flowers PO Box r for suprvsn of Medical K, 700 1522, normal , [facility], [facility] , [facility] Dr GUZMAN, [id number] weeks 120, Adarsh 120, [id number], gestation of Jerome Cano, [place] THOMAS, THOMAS, tel: [phone]. , [place]. tel: tel: [phone] [facility] Previous Low May-3 Flowers Referring In Womens Ultrasound Transverse 1-201 Oriana. Provider: Nita ANSARI, C-SectionMaternal 7 700 Oriana Flowers PO Box care for excess Medical K, 700 1522, growth, [facility], [address], [facility] Dr GUZMAN, unspObesity 120, Adarsh 120, [id number], complicating Jerome Cano, [place] , second THOMAS GUZMAN, tel: [id number] weeks [phone]. gestation of , [place]. tel: tel: [phone] [facility] Maternal care for May-1 Flowers Referring In Womens excess 6-201 Oriana. Provider: Nita ANSARI, growth, second 7 700 Oriana Flowers PO Box tri, unsp17 weeks Medical , 700 1522, gestation of [facility], Dr, [facility] Dr GUZMAN, 120, Adarsh 120, , Jerome Cano, KSTHOMAS, tel: [phone]. , [place]. tel: tel: [phone] [facility] Encntr screen for May-0 Flowers Referring In Womens infections w sexl 4-201 Oriana. Provider: Nita ANSARI, mode of 7 700 Oriana Flowers PO Box transmissPlacenta Medical , 700 1522, previa specified [facility], as w/o Dr miguel, [facility] Dr GUZMAN, second 120, Adarsh 120, [id number], [id number] weeks Jerome Cano, gestation of THOMAS, HTOMAS, tel: [phone]. , [place]. tel: tel: [phone] [facility] Previous Low Apr-1 Flowers Referring In Womens Transverse 7-201 Oriana. Provider: Nita ANSARI, C-SectionPlacenta 7 700 Oriana Flowers PO Box previa specified Medical , 700 1522, [facility], first , [facility] Dr GUZMAN, trimesterEncounte 120, Adarsh 120, , r for suprvsn of Jerome Cano, normal , THOMAS, THOMAS, tel: first [id number] [phone]. weeks gestation , [place]. tel: of tel: [phone] [facility] Previous Low Apr-1 Flowers Referring In Womens Ultrasound Transverse 7-201 Oriana. Provider: Nita ANSARI, C-SectionObesity 7 700 Oriana Flowers PO Box complicating Medical , 700 1522, , first [facility], [id number] weeks , [facility] Dr GUZMAN, gestation of 120, Adarsh 120, , Jerome Cano, THOMAS GUZMAN, tel: [phone]. , [place]. tel: tel: [phone] [facility] Previous Low Mar-2 Flowers Referring In Womens Transverse 9-201 Oriana. Provider: Nita ANSARI, C-SectionSmoking 7 700 Oriana Flowers PO Box (tobacco) Medical , 700 1522, complicating [facility], , first , [facility] Dr GUZMAN, trimesterObesity 120, Adarsh 120, , complicating Jerome Cano, , first THOMAS GUZMAN, tel: [id number] weeks [phone]. gestation of , [place]. tel: tel: [phone] Cheng Cano Encounter for Mar-0 Flowers Referring In Womens suprvsn of normal 8-201 Oriana. Provider: Nita ANSARI, , first 7 700 Oriana Flowers PO Box trimester8 weeks Medical , 700 1522, gestation of [place], , [facility] Dr GUZMAN, 120, Adarsh 120, [id number], Jerome Cano, THOMAS GUZMAN, tel: [phone]. , [place]. tel: tel: [phone] Cheng [place]o state, Mar-0 Flowers Referring In Womens Ultrasound incidental8 weeks 8-201 Oriana. Provider: Nita ANSARI, gestation of 7 700 Oriana Flowers PO Box Medical , 700 1522, [place] [address], [facility] Dr GUZMAN, 120, Adarsh 120, , Jerome Cano, THOMAS GUZMAN, tel: [phone]. , [place]. tel: tel: [phone] Cheng Cano state, Mar-0 Flowers Referring In Womens incidentalLess 1-201 Oriana. Provider: [facility], than 8 weeks 7 700 Oriana Flowers PO Box gestation of Medical K, 700 1522, [facility] [address] [place], [facility] [place], 120, Adarsh 120, [id number], Jerome [place], [place], tel: [phone]. , . tel: tel: [phone] Cheng Cano Flowers In Womens 6-201 Oriana. [facility], 4 700 PO Box Medical 1522, [address] [address] [place], [place], 120, [id number], [place], tel: [phone] , [place]. tel: [phone] Family History Family Member Diagnosis Age At [...] Insurance type Covered constitution party ID Authorization(s) [facility] [id number] [employer] [place] [employer] - Medicaid [place] [id number] [facility] [id number] [employer] [place] [employer] - Medicaid [place] [id number] [facility] [id number] [employer] [place] [employer] - Medicaid [place] [id number] Social History Type Description Quantity Date Captured Alcohol Use Details No Caffeine Use Details Unknown Tobacco Use Status Smoking Status Former smoker Vital Signs Date / Height Weight BMI Pulse Blood Temperature Respiratory Body Head BMI Time: Rate Pressure Rate Surface Circumference percentile Area 220.00 38.9 119/73 2017 lbs 7 mm[Hg] 3:19 kg/m PM eter (2) 382017 1 3:14 kg/m PM eter (2) Chief Complaint And Reason For Visit Unknown Chief Complaint And Reason For Visit Reason For Referral Reason For Referral Unknown Plan Of Care Date Type Action Status Goal Tobacco cessation counseling completed Appointment Leni Nugent BOOKED Appointment Leni Nugent - [facility] - RC/S, PPTL BOOKED Future Order: Radiology Order Ultrasound OB Follow-up ([id number]) Ordered Future Order: Radiology Order Nuchal Translucency ([id number]) Ordered Future Order: Radiology Order Complete OB Ultrasound > 14 Ordered Weeks ([id number]) Future Order: Radiology Order Ultrasound < 14 wks ([id number]) Ordered Date Type Problem Goal Intervention Status [...]
[2016-12-25 11:14] VITALS: BMI 42.2
[2016-12-25] MEDS: LR 1,000 ML IV SCH ×2 (11:15→11:59)
--- NOTE | 2016-12-25 11:24 | Anesthesia Preoperative Report ---
Anesthesia Preoperative Record - Date and Time Date: 12/25/16 Preoperative Diagnosis: Repeat c section/pptl Proposed Procedure: C Section NPO Since Date: 12/24/16 NPO Since Time: 03:00 Allergies/Adverse Reactions: Allergies Allergy/AdvReac Type Severity Reaction Status Date / Time No Known Drug Allergies Allergy Unknown Verified 08/19/16 16:55 - Vital Signs Vital Signs: Temperature 98.0 F 12/25/16 10:57 Pulse Rate 99 12/25/16 10:57 Respiratory Rate 18 12/25/16 10:57 Blood Pressure 130/80 12/25/16 10:57 Pulse Oximetry 98 12/25/16 10:57 Height and Weight: Height 5 ft 1 in Weight 101.4 kg Body Mass Index 42.2 - Medications Inpatient Medications: Current Medications Cefazolin Sodium (Kefzol) 1 g IVP PREOP ONE Stop: 12/25/16 10:34 Last Admin: 12/25/16 11:16 Dose: 1 g Citric Acid/Sodium Citrate (Oracit) 30 ml PO PREOP ONE Stop: 12/25/16 10:31 Last Admin: 12/25/16 11:17 Dose: 30 ml Famotidine/Sodium Chloride (Pepcid Premix) 20 mg in 50 mls @ 100 mls/hr IV PREOP ONE Stop: 12/25/16 10:59 Last Admin: 12/25/16 11:14 Dose: 100 mls/hr Lactated Ringer's (Lactated Ringers) 1,000 mls @ 0 mls/hr IV .Q0M BASSAM PRN Reason: As Directed Last Admin: 12/25/16 11:15 Dose: 125 mls/hr Cefazolin Sodium/Dextrose (Kefzol Premix ( Only)) 2 gm in 50 mls @ 100 mls/ hr IV PREOP ONE Stop: 12/25/16 11:02 Last Admin: 12/25/16 11:15 Dose: 100 mls/hr Isopropyl Alcohol (Nozin Nasal Swab) 3 each JULIANA PREOP ONE Stop: 12/25/16 10:34 Isopropyl Alcohol (Nozin Nasal Swab) 1 each JULIANA 0600,1400,2200 BASSAM Isopropyl Alcohol (Nozin Nasal Swab) 1 each JULIANA O ONE Stop: 12/25/16 10:34 Home Medications: Home Medications Medication Instructions Recorded Confirmed Type Vit Calc,Iron,Folic 1 each PO DAILY #0 tab 06/14/13 12/24/16 History [ Vitamins] Calcium Carbonate [Calci-Chew] 1 tab.chew PO PRN #0 06/29/13 12/24/16 History Ondansetron HCl [Zofran] 4 mg PO Q6H PRN 12/24/16 12/24/16 History Is Patient on Beta Musa?: No - Medical History Respiratory: DENIES: Asthma, Bronchitis, Chronic Obstructive Pulmonary Disease (COPD), Dyspnea, Orthopnea, Pulmonary Embolism, Pneumonia, Upper Respiratory Infection, Pulmonary Edema, Sleep Apnea, Tuberculosis, Other Cardiovascular: DENIES: Abnormal EKG, Angina, Arrhythmia, Congestive Heart Failure, Coronary Artery Disease, Heart Murmur, Hypertension, Hypotension, High Cholesterol, Myocardial Infarction, Rheumatic Fever, Valvular Heart Disease, Other Gastrointestional: Reports: Gastroesophageal Reflux Disease DENIES: Obstructive Bowel, Hepatitis, Cirrhosis, Nausea or Vomiting Present, Gastrointestinal Bleeding, Hiatal Hernia, Ulcer, Morbid Obesity, Other Neuro/Musculoskeletal: Denies: HX.MS.OSAR, Back Problems, Cerebrovascular Accident, Depression, Headaches, Loss of Consciousness, Muscle Weakness, Neuromuscular Disorder, Paralysis, Paresthesia, Syncope, Seizures, Other Renal/Endocrine: DENIES: Diabetes Mellitus Type 1, Diabetes Mellitus Type 2, Renal Failure, Dialysis, Thyroid Disease, Weight Loss, Weight Gain, Other Other History: Reports: Now DENIES: Anesthesia Reactions, Blood Transfusions, Chemotherapy, Cancer, Hemophilia, Malignant Hyperthermia, Sickle Cell Disease, Other - Surgical History Reproductive Surgery/Treatment: Reports: Cervical Procedure (abnormal cells frozen), Section Anesthesia Reactions: None Hx Family Anesthesia Reaction: No History of Motion Sickness: No - Social History Smoking Status: Light tobacco smoker Hx Chewing Tobacco Use: No Substance Use Type: does not use Alcohol Intake Frequency: does not drink - Pertinent Findings Laboratory: CBC and BMP 12/25/16 11:05 EKG: Sinus Rhythm - Physical Exam Respiratory Exam: Present: lungs clear, bilateral breath sounds equal Cardiovascular Exam: Present: regular rate and rhythm, no murmur - Airway Assessment Mallampati Score: II TMD: 3 Fingerbreadths Neck Extension: good Overall Assessment: may be difficult mask vent, may be difficult intubation - ASA ASA Score: 3 - Plan Anesthesia: Neuroaxial Regional/Trunk Block: Spinal - Discussion Discussion: Discussed risks/options/alternatives of anesthesia and questions answered. Patient consents. Nursing pain assessment noted. Present for Discussion: spouse Attestation Statement: Prior to the delivery of any anesthetic medication, I examined the patient, developed the plan, obtained the patient's consent and discussed the risk and benefits of the procedure with the patient/guardian. - Additional Information Seen by Anesthesia: Yes
[2016-12-25] MEDS ORDERED: FentaNYL 100 MCG/2 ML INJECTION ONE (11:38)
[2016-12-25] MEDS ORDERED: EPHEDRINE 50mg/ml INJECTION ONE (11:38)
[2016-12-25] MEDS ORDERED: ONDANSETRON 4 MG/2 ML INJECTION ONE (11:38)
[2016-12-25] MEDS ORDERED: MORPHINE SULFATE PF 5mg/10ml INJ (Duramorph) ONE (11:38)
[2016-12-25] MEDS ORDERED: OXYTOCIN BOLUS BAG 30 UNIT/500 ML ML IV SCH (12:27)
[2016-12-25] MEDS ORDERED: NALOXONE 2 MG/2 ML INJECTION PFS IVP PRN (13:36)
[2016-12-25] MEDS ORDERED: ONDANSETRON 4 MG/2 ML INJECTION IVP PRN (13:36)
--- NOTE | 2016-12-25 13:37 | Operative Note ---
Operative Note - Date of Operation Date of Operation: 12/25/16 - General : 2 Para: 1 Estimated or Known Gestational Age (weeks): 39 Estimated or Known Gestational Age (days): 3 - Preoperative Diagnosis Previous Section, Desires sterilization - Postoperative Diagnosis same as preoperative - Procedure Repeat, Low-transverse , Tubal Ligation (modified Lia method) - Surgeon Surgeon: Oriana Flowers MD - Program Admin Leonard Madden, Surg. Assist - Anesthesia Anesthesia Provider: Jules Booker CRNA Anesthesia Type: Spinal - Complications Complications: None - Estimated Blood Loss Estimated Blood Loss:: 800 - Findings Findings: viable male, clear fluids, normal adenexa, OT, other Comments: Omental adhesions to the anterior uterus and anterior peritoneum. - APGARS : 7,7 - Moroni Weight Moroni Weight (grams): 3180 - Name Name: Humberto - Description of Procedure Description of Procedure: The patient was taken to the operating room where anesthesia was obtained . She was placed in the dorsal supine position with a leftward tilt. A Berg catheter was placed . She was prepared and draped in the normal sterile fashion. A Pfannenstiel incision was made through her previous incision and carried down to the fascia. The fascia was incised in the midline with the scalpel and then extended laterally with the Lopez scissors. The fascia was elevated, and the underlying rectus muscles were dissected off. Omental adhesions were encountered through the peritoneum. These were bluntly and sharply taken down until we were able to enter the peritoneum. This was extended superiorly. More omental adhesions were taken down from the lower uterine segment. The bladder blade was inserted. The bladder was low enough on the uterus that a bladder flap was not created. The lower uterine segment was incised in a transverse fashion [id number] with the scalpel and bluntly extended.The lower edge of the placenta was encountered and started to deliver spontaneously. The membranes were ruptured. The infants head was delivered atraumatically. The nose and mouth were suctioned. The cord was clamped and cut. The was handed to the waiting resuscitation team. The placenta delivered spontaneously. The uterus was exteriorized and cleared of all clots and debris. The uterus was closed with running, locked 0-monocryl. Hemostasis was obtained on the serosal edges with cautery. Another pedicle of omentum was taken down from the anterior left uterus with the cautery. The left Fallopian tube was identified and carried out to the fimbriae. An avascular segment was grasped with a [place]. The segment was ligated with chromic. Each end of the segment was ligated with silk. The tube segment was excised, and good hemostasis was noted. The procedure was repeated on the other tube. The uterus was returned to the abdomen. The gutters were cleared of all clots and debris. The uterine incision was inspected one final time and still noted to be hemostatic. A piece of Interceed was placed over the site of previous adhesions on the uterus. The peritoneum was closed with running 2-0 vicryl. Hemostasis was obtained in the rectus muscles with the cautery. The fascia was closed with running 0-vicryl. Hemostasis was obtained in the subcutaneous tissue with the cautery. The deep tissue was closed with running 2-0 chromic. The skin was closed with 4-0 vicryl in a subcuticular manner. Dermabond was placed. Sponge, sharp, and instrument counts were correct. The patient tolerated the procedure well and was taken to the recovery room in good condition.
[2016-12-25] MEDS ORDERED: OXYTOCIN DRIP 30 UNIT/500 ML ML IV SCH (13:40)
[2016-12-25] MEDS ORDERED: ACETAMINOPHEN 500 MG TABLET PO PRN (13:40)
[2016-12-25] MEDS ORDERED: CALCIUM CARBONATE Chewable 500mg TABLET PO PRN (13:40)
[2016-12-25] MEDS ORDERED: DiphenhydrAMINE 25 MG CAPSULE PO PRN (13:40)
[2016-12-25] MEDS ORDERED: SIMETHICONE 80 MG CHEWABLE TABLET PO PRN (13:40)
[2016-12-25] MEDS ORDERED: HYDROCORTISONE 2.5% CREAM 30gm RECTALLY PRN (13:40)
[2016-12-25] MEDS: D5LR 1,000 ML IV SCH (13:55)
[2016-12-25] MEDS ORDERED: NOZIN NASAL SWAB NAS SCH (14:00)
[2016-12-25] MEDS: IBUPROFEN 800 MG TABLET PO PRN (15:56)
[2016-12-25] MEDS: HYDROCODONE/APAP 5mg/325mg TABLET PO PRN ×2 (15:59→23:10)
[2016-12-25] MEDS: SIMETHICONE 80 MG CHEWABLE TABLET PO SCH ×2 (22:08→23:10)
[2016-12-26] MEDS: D5LR 1,000 ML IV SCH (02:03)
[2016-12-26] MEDS: IBUPROFEN 800 MG TABLET PO PRN ×3 (02:04→20:25)
[2016-12-26] MEDS: HYDROCODONE/APAP 5mg/325mg TABLET PO PRN ×4 (05:41→22:25)
--- NOTE | 2016-12-26 08:05 | OB/GYN Progress Note ---
OB-PP Progress Note - General PPD1 Maternal Group B Strep: Negative Maternal blood type: B+ Maternal Rubella Status: Immune - Subjective Date: 12/26/16 Lochia: Minimal Pain: contolled Voiding: other (Berg just removed.) - Objective Vital Signs: Last Vital Signs Temp 98.2 F 12/26/16 07:03 Pulse 90 12/26/16 07:03 Resp 16 12/26/16 07:03 BP 116/65 12/26/16 07:03 Pulse Ox 96 12/26/16 07:03 Urine Output: good General: alert and oriented Abdomen: fundus firm, non-tender, soft, non-distended Incision: dressed Extremities: non-tender Laboratory: Laboratory Results - last 24 hr 12/25/16 12/25/16 12/25/16 11:05 11:05 18:18 WBC 7.9 11.4 H D RBC 4.02 3.67 L Hgb 11.7 L 10.8 L Hct 34.8 L 31.8 L MCV 86.6 86.6 MCH 29.1 29.4 MCHC 33.6 34.0 RDW Std Deviation 40.3 39.8 Plt Count 198 191 MPV 9.9 9.3 L Immature Gran % (Auto) 0.5 Neut % (Auto) 79.6 H Lymph % (Auto) 14.0 L Graham % (Auto) 5.7 Eos % (Auto) 0.1 Baso % (Auto) 0.1 Neut # (Auto) 6.2 Lymph # (Auto) 1.1 Graham # (Auto) 0.5 Eos # (Auto) 0.0 Baso # (Auto) 0.0 Abs Immat Gran (auto) 0.04 H Blood Type B Positive Antibody Screen Negative - Assessment Assessment: Repeat C/S (and PPTL) - Plan Plan: routine care (Likely home tomorrow)
[2016-12-26] MEDS: DOCUSATE CALCIUM 240 MG CAPSULE PO SCH (10:09)
[2016-12-26] MEDS: SIMETHICONE 80 MG CHEWABLE TABLET PO SCH ×3 (10:09→20:25)
[2016-12-26 21:02] VITALS: O2SAT 98
[2016-12-27] MEDS: IBUPROFEN 800 MG TABLET PO PRN (03:50)
[2016-12-27] MEDS: HYDROCODONE/APAP 5mg/325mg TABLET PO PRN (05:29)
--- NOTE | 2016-12-27 05:50 | Discharge Instructions ---
Discharge Plan - Med Rec/Dispo Referrals/Follow Up: Oriana Flowers MD [Physician] - Prescriptions: New Hydrocodone/APAP 5/325 [Hammond 5/325] 1 - 2 tab PO Q4H PRN #40 tab PRN Reason: Pain Ibuprofen [Motrin] 800 mg PO Q8H PRN #30 tab PRN Reason: Pain Continue Vit Calc,Iron,Folic [ Vitamins] 1 each PO DAILY #0 tab Ondansetron HCl [Zofran] 4 mg PO Q6H PRN PRN Reason: Nausea Calcium Carbonate [Calci-Chew] 1 tab.chew PO PRN #0 - Disposition 01 Discharged Home, Self-Care
[2016-12-27] MEDS: SIMETHICONE 80 MG CHEWABLE TABLET PO SCH ×2 (06:38→08:14)
[2016-12-27] MEDS: DOCUSATE CALCIUM 240 MG CAPSULE PO SCH (08:13)
[2016-12-27 10:43] VITALS: BP 127/85; PULSE 87; RESP 19; TEMP 96.6
== END 2016-12-27 11:28 | disposition home or self-care (01) | DRG 766 ==
LOC: MC 10:18
PROVIDERS: ADMIT Obstetrics & Gynecology; ATTEND Obstetrics & Gynecology